=== PATIENT | female | born 1965 | race Two or more races ===

== ENCOUNTER → 2017-09-07 12:02 | Outpatient (CLI) | payer BC, SELFPAY ==
--- NOTE | 2017-09-07 12:10 | XR_ITS ---
XR chest 2V HISTORY: ITS.REASON: RT SIDE PAIN,COUGH ORDERING PHYSICIAN: Anthony Juarez MD PATIENT AGE: 52 years COMPARISON: None available FINDINGS: The cardiomediastinal silhouette and pulmonary vascularity are within normal limits. The lungs are clear without infiltrates, suspicious nodules, or pleural effusions. No acute bony abnormalities. IMPRESSION: Negative chest, no acute finding
== END ==
PROVIDERS: PCP Family Medicine; Visit Provider Family Medicine
DX: R07.81 Pleurodynia (principal)
CPT/HCPCS: 71046

== ENCOUNTER → 2017-12-13 08:06 | Outpatient (CLI) | payer BC, SELFPAY ==
[2017-12-13 09:15] LABS: Alanine Aminotransferase 26 U/L (12-78); Albumin Level 3.8 gm/dL (3.4-5.0); Alkaline Phosphatase 96 U/L (46-116); Anion Gap 8.9 mEq/L (5-15); Aspartate Amino Transferase 23 U/L (15-37); Bilirubin,Total 0.7 mg/dL (0.2-1.0); Blood Urea Nitrogen 10 mg/dL (7-18); Calcium 8.9 mg/dL (8.5-10.1); Carbon Dioxide 31 mmol/L (21.0-32.0); Chloride 108 mmol/L (98-107); Chol/HDL Ratio 2.5 (1-3.5); Cholesterol 199 mg/dL (140-200); Creatinine,Serum 0.61 mg/dL (0.55-1.02); Estimated Glomerular Filt Rate 103 ml/min (>60); GFR (African American) 124 ML/MIN (>60); Globulin 3.8 gm/dl (1.3-3.2); Glucose 73 mg/dL (74-106); HDL Cholesterol 79 mg/dL (29-89); LDL Cholesterol 106 mg/dL (0-130); Potassium 3.9 mmoL/L (3.5-5.1); Sodium 144 mmol/L (136-145); Thyroid Stimulating Hormone 3.98 uIU/ml (0.358-3.740); Total Protein,Serum 7.6 gm/dL (6.4-8.2); Triglycerides 68 mg/dL (30-200); VLDL Cholesterol 14 mg/dL (0-40)
== END ==
PROVIDERS: Visit Provider Family Medicine
DX: E78.5 Hyperlipidemia, unspecified (principal); E05.90 Thyrotoxicosis, unspecified without thyrotoxic crisis or storm; R00.2 Palpitations
CPT/HCPCS: 36415; 80053; 80061; 84443

== ENCOUNTER → 2017-12-19 12:40 | Outpatient (CLI) | payer BC, SELFPAY ==
--- NOTE | 2017-12-19 12:44 | XR_ITS ---
XR DEXA axial skeleton HISTORY: ITS.REASON: OSTEOPENIA ORDERING PHYSICIAN: Varghese Juarez MD PATIENT AGE: 52 years COMPARISON: 05/11/2015 FINDINGS: The BMD measured at the AP spine L1-L4 femoral neck is 0.863 g/cm squared with a T score of -2.6 . This is considered Osteoporotic according to the World Health Organization criteria. Fracture risk is high. Treatment is advised. The L-spine density has decreased a 14.5% and the hip density has decreased 8% compared to the previous study. The mean density of the hips have a T score of -2.4 IMPRESSION: Osteoporosis with high fracture risk. Recommend follow-up exam December 2018
== END ==
PROVIDERS: PCP Family Medicine; Visit Provider Family Medicine
DX: M85.89 Other specified disorders of bone density and structure, multiple sites (principal)
CPT/HCPCS: 77080

== ENCOUNTER 2018-01-02 12:48 | Outpatient (CLI) | payer BC, SELFPAY ==
[2018-01-02 13:40] VITALS: BP 115/63; PULSE 73; RESP 18; TEMP 36.4
[2018-01-02 14:00] VITALS: BP 126/81; PULSE 68; RESP 18
== END 2018-01-02 14:00 | disposition home or self-care (01) ==
LOC: INF 12:48
PROVIDERS: PCP Family Medicine; Visit Provider Family Medicine
DX: M85.89 Other specified disorders of bone density and structure, multiple sites (principal)
CPT/HCPCS: 96372; J0897

== ENCOUNTER 2018-07-10 13:33 | Outpatient (CLI) | payer BC, SELFPAY ==
[2018-07-10 13:44] VITALS: BP 119/67; PULSE 65; RESP 18; TEMP 36.5; O2SAT 98
== END 2018-07-10 14:00 | disposition home or self-care (01) ==
LOC: INF 13:33
PROVIDERS: Visit Provider Family Medicine
DX: M85.89 Other specified disorders of bone density and structure, multiple sites (principal)
CPT/HCPCS: 96372; J0897

== ENCOUNTER → 2018-12-29 18:54 | Outpatient (CLI) | payer BC, SELFPAY | PROVIDERS: Visit Provider Nurse Practitioner Family | DX: N30.01 Acute cystitis with hematuria (principal) | CPT/HCPCS: 87086; 87088; 87186 ==

== ENCOUNTER → 2019-06-28 12:21 | Outpatient (CLI) | payer BC, SELFPAY ==
[2019-06-28 12:24] LABS: Microscopic, Urine URINE MICROSCOPIC (MICROSCOPIC)
[2019-06-28 12:56] LABS: Appearance,Urine CLEAR (Clear); Bilirubin,Urine Negative (Negative); Blood, Urine 1+ (Negative); Color,Urine YELLOW (Yellow); Glucose,Urine (UA) Negative (Negative); Ketones,Urine Negative (Negative); Leukocyte Esterase,Urine Negative (Negative); Nitrate,Urine Negative (Negative); Protein,Urine Negative (Negative); Specific Gravity, Urine <= 1.005 (1.005-1.030); Urobilinogen,Urine 0.2 EU/dl (0.2)
[2019-06-28 13:21] LABS: Bacteria,Urine Trace /lpf; RBC,Urine Occasional #/hpf (0-3)
== END ==
PROVIDERS: Visit Provider Family Medicine
DX: R30.0 Dysuria (principal)
CPT/HCPCS: 81001; 87086

== ENCOUNTER → 2019-10-01 15:38 | Outpatient (CLI) | payer BC, SELFPAY ==
--- NOTE | 2019-10-01 15:45 | XR_ITS ---
PROCEDURE: XR SHOULDER LT MIN 2V CLINICAL INDICATION: LT SHOULDER PAIN COMPARISON: No exams were available for comparison FINDINGS: No fracture, dislocation, lytic change, or blastic change evident. No significant degenerative change IMPRESSION: Negative left shoulder Dictated by: Isak Cummings MD 10/01/2019 17:43 Electronically signed by Isak Cummings MD in [place] 10/01/2019 17:43
== END ==
PROVIDERS: PCP Family Medicine; Visit Provider Family Medicine
DX: M25.512 Pain in left shoulder (principal)
CPT/HCPCS: 73030

== ENCOUNTER → 2021-02-09 10:02 | Outpatient (CLI) | payer BC, SELFPAY | PROVIDERS: PCP Family Medicine; Visit Provider Family Medicine | DX: R00.2 Palpitations (principal) | CPT/HCPCS: 93225; 93226 ==

== ENCOUNTER → 2021-10-25 15:07 | Outpatient (CLI) | payer BC, SELFPAY ==
--- NOTE | 2021-10-25 15:25 | ECG_ITS ---
APPROVED REPORT Exam: Resting ECG HR:62 bpm ECG Measurements Heart Rate 62 AXES OH 163 P 85 QRSd 77 QRS 86 QT 383 T 70 QTc 389 Conclusion SINUS RHYTHM NORMAL ECG UNCONFIRMED REPORT Electronically signed by : Agustin Ni MD 10/26/2021 21:56:27
[2021-10-25 16:01] LABS: Chloride 100 mmol/L (98-107); Potassium 4.1 mmoL/L (3.5-5.1); Sodium 133 mmol/L (136-145)
[2021-10-25 16:04] LABS: Alanine Aminotransferase 29 U/L (12-78); Albumin Level 4.4 g/dl (3.5-5.0); Albumin/Globulin Ratio 1.8 (1.1-1.8); Alkaline Phosphatase 83 U/L (38-126); Anion Gap 10.1 mEq/L (5-15); Aspartate Amino Transferase 41 U/L (14-36); Bilirubin,Total 0.8 mg/dl (0.2-1.3); Blood Urea Nitrogen 13 mg/dl (7-17); Carbon Dioxide 27 mmol/L (22.0-30.0); Estimated Glomerular Filt Rate 86 ml/min (>60); GFR (African American) 104 ML/MIN (>60); Globulin 2.5 g/dL (1.3-3.2); Total Protein,Serum 6.9 g/dl (6.3-8.2)
[2021-10-25 16:05] LABS: Calcium 8.3 mg/dl (8.4-10.2); Glucose 100 mg/dl (74-100)
[2021-10-25 16:21] LABS: Triiodothryronine (T3) Uptake 29 % (23.5-40.5)
[2021-10-25 16:22] LABS: T4 (Thyroxine) 10.3 ug/dl (5.53-11.0)
[2021-10-25 16:36] LABS: Thyroid Stimulating Hormone 6.14 uIU/mL (0.465-4.68)
== END ==
PROVIDERS: PCP Family Medicine; Visit Provider Family Medicine
DX: I49.9 Cardiac arrhythmia, unspecified (principal)
CPT/HCPCS: 36415; 80053; 84436; 84443; 84479; 93005

== ENCOUNTER → 2021-12-20 13:25 | Outpatient (CLI) | payer BC, SELFPAY | PROVIDERS: Visit Provider Family Medicine | DX: I49.9 Cardiac arrhythmia, unspecified (principal) ==

== ENCOUNTER → 2022-02-01 07:48 | Outpatient (CLI) | payer BC, OTHER, SELFPAY ==
--- NOTE | 2022-02-01 | CA_ITS ---
APPROVED REPORT Exam: Exercise Treadmill Technologist: Margarita Brown, Ht: 5 ft 2 in Wt: 103 lbs BSA: 1.44 m2 HR: 68 bpm BP: 134/61 mmHg Medical History Medications: Simvastatin,,,,, Meclizine,,,,, Levpthyroxine,,,,, Stress Test Details Test: Omega HR Resting HR: 74 bpm Max Heart Rate (APMHR): 163.467379 bpm Max HR Achieved: 148 bpm Target HR (85% APMHR): 138.437375 bpm % of APMHR: 90.80 Recovery HR: 88 bpm BP Resting BP: 136/73 mmHg Max BP: 184/70 mmHg Recovery BP: 143.0/71.0 mmHg ECG Resting ECG: NSR-Inferior ST-T changes noted, NS ST changes laterally, rightward axis Clinical Exercise duration: 07:34 min Highest Stage Achieved: III Exercise capacity: 10.1 METs Stress ECG Conclusion Exercised 7:34 into stage III Omega protocol. Max HR: 148 % of PM: 91% Max BP: 184/76 METs: 10.1 Test stopped due to: SOA Symptoms: SOA, No CP. Arrhythmias/Ectopy: Rare PAC. ST-T Changes: Exaggeration of baseline ST-T abns inferiorly & laterally, with -2mm of horizontal & downsloping ST depression -1.5mm horizontal ST depression laterally. Conclusion: ST changes (+) for ischemia but with decreased specificity due to baseline abns. Myoview images reported separately. Test Summary RECOVERY 07:00 0.0 0.0 83 . 143/ 71 . . REST . . . . . . . Standing REST 04:42 0.0 0.0 74 . 136/ 73 . . Stage 1 01:00 10.0 1.7 90 . . . . Stage 1 02:00 10.0 1.7 104 . . . . Stage 1 03:00 10.0 1.7 112 . 174/ 76 . . Stage 2 01:00 12.0 2.5 120 . . . . Stage 2 02:00 12.0 2.5 130 . 184/ 70 . . Stage 2 03:00 12.0 2.5 135 . 184/ 70 . . Stage 3 01:00 14.0 3.4 142 . . . . Stage 3 01:34 14.0 3.4 148 . . . Stop exercise at 07:34 RECOVERY 01:00 0.0 0.0 129 . 184/ 76 . . RECOVERY 02:00 0.0 0.0 109 . 184/ 76 . . RECOVERY 03:00 0.0 0.0 96 . 174/ 82 . . RECOVERY 04:00 0.0 0.0 91 . 147/ 66 . . RECOVERY 05:00 0.0 0.0 88 . 143/ 71 . . RECOVERY 06:00 0.0 0.0 88 . 143/ 71 . . RECOVERY 07:00 0.0 0.0 83 . 143/ 71 . . RECOVERY 08:00 0.0 0.0 81 . 143/ 71 . . RECOVERY 09:00 0.0 0.0 82 . 143/ 71 . . RECOVERY 09:55 0.0 0.0 86 . 143/ 71 . . Electronically signed by : Jeffrey Raphael MD 02/01/2022 16:21:26
--- NOTE | 2022-02-01 07:51 | NM_ITS ---
APPROVED REPORT Exam: Nuclear Stress Test Indication: SOB, C.P., FM HX., FATIGUE Patient Location: Outpatient Stress Tech: Isabel Smith CT Tech:CURTIS Hayes RT(R)(N) Ht: 5 ft 2 in Wt: 104 lbs Bra Size: 34B HR: 74 bpm BP: 136/73 mmHg BSA: 1.45 m2 TID: 1.24 BMI: 19.0 History: SOB, C.P., FM HX., FATIGUE Procedure: Patient exercised on Omega protocol 7:34 minutes and sec, resting heart rate 74 bpm, resting blood pressure 136/73 mmHg, with exercise maximum heart rate achived was 148 bpm which is 91 % of the maximum predicted heart rate and blood pressure was 184/70 mmHg. Test was stopped due to FATIGUE. Patient denied any complaint of chest pain. Patient has good exercise capacity, achieved 10.1 METs of workload on treadmill, the blood pressure response to exercise was Adequate. Electrocardiogram Electrocardiogram shows sinus rhythm nonspecific ST-T changes, with exercise there is additional millimeter ST segment depression noted from the baseline EKG. The EKG portion of the exercise is nondiagnostic due to baseline abnormal EKG. Cardiac Stress and Resting SPECT Images: Cardiac Stress and Resting SPECT images were obtained using technetium 99m Myoview 32.6 mCi stress and 10.10 mCi at rest. Gated SPECT for analysis of segmental wall motion and calculation of the ejection fraction also done. Prone images were also obtained. Cardiac stress and rest SPECT images show uniform myocardial activity without segmental perfusion abnormality, computer derived ejection fraction is 61% with no regional wall motion abnormality, right ventricle is normal size and contractility. Conclusion: 1. The EKG portion of the exercise Myoview is nondiagnostic due to baseline abnormal EKG, patient has good exercise capacity achieved 10.1 METs of workload on treadmill, the blood pressure response to exercise was adequate, there was no exercise-induced chest discomfort. 2. No scintigraphic evidence of reversible ischemia seen, compared right ejection fraction 61% with no regional wall motion abnormality, right ventricle is normal size and contractility. 3. Normal exercise Myoview study. Electronically signed by : Jeffrey Raphael MD 02/01/2022 16:24:12
== END ==
PROVIDERS: PCP Family Medicine; Visit Provider Physician Assistant
DX: R06.09 Other forms of dyspnea (principal); R07.89 Other chest pain
CPT/HCPCS: 78452; 93017; A9502

== ENCOUNTER → 2022-04-25 08:52 | Outpatient (CLI) | payer BC, OTHER, SELFPAY ==
--- NOTE | 2022-04-25 09:00 | XR_ITS ---
FINAL REPORT TECHNIQUE: Bone densitometry calculations of the lumbar spine and left hip were obtained. CLINICAL HISTORY: .screening, osteopenia FINDINGS: DEXA BONE DENSITY AXIAL SKELETON Using L1-4, the bone mineral density of the spine is 0.717 g/cm2, corresponding to T-score of -3.0. Using the left hip, the bone mineral density of the femoral neck is 0.506 g/cm2, corresponding to a T-score of -3.1. NOTE: T-score: Standard deviation compared with peak bone mass of young adult mean. *Following the recommendations of the International Society of Bone Densitometry, classification of hip BMD is based on the lower of two T-scores; total hip or femoral neck. IMPRESSION: Osteoporosis: Lowest T-score is at or below -2.5. This patient's T-score meets the World Health Organization criteria for osteoporosis. FRAX not reported because some T-score for Spine Total or Hip Total or Femoral Neck at or below -2.5. Patient being treated for osteoporosis. Reviewed, Interpreted and Dictated by Tor Mehta MD Transcribed by Chikis Orozco Authenticated and [facility]
== END ==
PROVIDERS: PCP Family Medicine; Visit Provider Family Medicine
DX: M85.89 Other specified disorders of bone density and structure, multiple sites (principal)
CPT/HCPCS: 77080

== ENCOUNTER 2023-05-26 13:22 | Emergency (ER) | payer BC, OTHER, SELFPAY ==
--- NOTE | 2023-05-26 13:43 | EXP.UTC ---
Discharge Plan Disposition Patient Disposition: Home, Self-Care Condition: Good Prescriptions Prescriptions: New phenazopyridine [Pyridium] 200 mg tablet 200 mg PO Q8H 2 Days Qty: 6 0RF ciprofloxacin HCl [Cipro] 500 mg tablet 500 mg PO BID 7 Days Qty: 14 0RF ondansetron 4 mg Tablet,Disintegrating 4 mg PO Q8H PRN (Reason: Nausea) Qty: 12 0RF No Action levothyroxine 25 mcg tablet 25 mcg PO DAILY Patient Comments: TAKE 1 TABLET BY MOUTH EVERY DAY rosuvastatin 10 mg tablet 10 mg PO .every other day cyanocobalamin (vitamin B-12) 1,000 mcg tablet 1,000 mcg PO DAILY Patient Comments: TAKE 1 TABLET BY MOUTH EVERY DAY ferrous sulfate [FeroSul] 325 mg (65 mg iron) tablet 325 mg PO BID Patient Comments: TAKE 1 TABLET BY MOUTH TWICE DAILY cholecalciferol (vitamin D3) 1,250 mcg (50,000 unit) capsule 1,250 mcg PO WEEKLY Patient Comments: TAKE 1 CAPSULE BY MOUTH ONCE WEEKLY ON THE SAME DAY EACH WEEK Referrals Follow up/Referrals: Varghese Juarez MD [Primary Care Provider] - See instructions Activity Restrictions/Add. Instructions Additional Instructions/Restrictions: Drink plenty of fluids. Take tylenol or ibuprofen for pain or fever. Take the medications as directed. Follow up with your regular doctor. GO TO THE ER FOR ANY WORSENING SYMPTOMS The pyridium will make your urine turn orange, this is an expected side effect. It will stain your clothes if it comes into contact with them. We will culture the urine. That will tell what bacteria is causing your infection and which antibiotics will treat it best. Sometimes the first antibiotic we prescribe turns out to not work against different bacteria. So, make sure you follow up within 3 days if you are not getting better. Clinical Impressions Clinical Impression: UTI (urinary tract infection) Instructions Patient Instructions: Urinary Tract Infection, Urine Culture, DI for Urinary Tract Infection (UTI) Discharge ED Provider: Mike Raza [facility] General Stated complaint: poss UTI Time Seen by Provider: 05/26/23 13:43 History of Present Illness Provider Complaint: She states that for the past 2 days she has had dysuria, hematuria, and urinary frequency. She has had nausea and malaise also. Related Data Home Medications Medication Instructions Recorded Confirmed levothyroxine 25 mcg tablet 25 mcg PO DAILY thyroid 06/20/22 05/26/23 rosuvastatin 10 mg tablet 10 mg PO .every other day . 06/20/22 05/26/23 cholecalciferol (vitamin D3) 1,250 1,250 mcg PO WEEKLY Supplement 05/26/23 05/26/23 mcg (50,000 unit) capsule cyanocobalamin (vitamin B-12) 1,000 mcg PO DAILY Supplement 05/26/23 05/26/23 1,000 mcg tablet ferrous sulfate 325 mg (65 mg 325 mg PO BID Supplement 05/26/23 05/26/23 iron) tablet (FeroSul) Previous Rx's Medication Instructions Recorded ciprofloxacin HCl 500 mg tablet 500 mg PO BID 7 days #14 tabs 05/26/23 (Cipro) ondansetron 4 mg disintegrating 4 mg PO Q8H PRN Nausea #12 tabs 05/26/23 tablet phenazopyridine 200 mg tablet 200 mg PO Q8H 2 days #6 tabs 05/26/23 (Pyridium) Allergies Allergy/AdvReac Type Severity Reaction Status Date / Time No Known Allergies Allergy Verified 05/26/23 13:51 [facility] Disclaimer: The information contained in this section may have been updated after the patient was seen, as this information can be updated by other users. Medical History (Updated 05/26/23 @ 18:30 by Mike Raza APRN) Chronic eustachian tube dysfunction Ear pain Vertigo Family History Mother Thyroid disorder Hypertension Father Hypertension Social History Smoking Status: Never smoker alcohol intake: never substance use type: denies use current occupational status: employed Travel in the last 8 weeks: None [employer]
[2023-05-26 13:45] VITALS: BP 129/69; PULSE 93; RESP 18; TEMP 36.6; O2SAT 97; BMI 20.6
[2023-05-26 14:00] LABS: Microscopic, Urine URINE MICROSCOPIC (MICROSCOPIC)
[2023-05-26 14:01] LABS: Appearance,Urine CLEAR (Clear); Bilirubin,Urine Negative (Negative); Blood, Urine 3+ (Negative); Color,Urine YELLOW (Yellow); Glucose,Urine (UA) Negative (Negative); Ketones,Urine TRACE (Negative); Leukocyte Esterase,Urine 1+ (Negative); Nitrate,Urine Negative (Negative); Protein,Urine Negative (Negative); Specific Gravity, Urine <= 1.005 (1.005-1.030); Urobilinogen,Urine 0.2 EU/dl (0.2)
[2023-05-26 14:15] LABS: Bacteria,Urine 1+ /lpf; Squamous Epithelial Cell,Urine Occasional #/hpf (0-5); WBC,Urine 20-50 #/hpf (0-3)
[2023-05-26 14:32] VITALS: BP 129/69; PULSE 93; RESP 18; TEMP 36.6; O2SAT 97
== END 2023-05-26 14:32 | disposition home or self-care (01) ==
PROVIDERS: Emergency Provider Nurse Practitioner Family; PCP Family Medicine
DX: N39.0 Urinary tract infection, site not specified (principal); B96.89 Other specified bacterial agents as the cause of diseases classified elsewhere; R11.0 Nausea
CPT/HCPCS: 81001; 87086; 87088; 87186; 99204; 99212; G0463

== ENCOUNTER 2024-06-04 15:08 | Outpatient (CLI) | payer BC, OTHER, SELFPAY ==
--- NOTE | 2024-06-04 15:12 | XR_ITS ---
FINAL REPORT TECHNIQUE: Bone densitometry calculations of the lumbar spine and left hip were obtained. CLINICAL HISTORY: . COMPARISON: 04/25/2022 FINDINGS: Using L1-4, the bone mineral density of the spine is 0.730 g/cm2, corresponding to T-score of -2.9. Using the left hip, the bone mineral density of the femoral neck is 0.544 g/cm2, corresponding to a T-score of -2.8. Using the right hip, the bone mineral density of the femoral neck is 0.539 g/cm?, corresponding to a T-score of -2.8. NOTE: T-score: Standard deviation compared with peak bone mass of young adult mean. *Following the recommendations of the International Society of Bone densitometry, classification of hip BMD is based on the lower of two T-scores; total hip or femoral neck. IMPRESSION: Diminished bone mineral density of the lumbar spine and bilateral hips consistent with osteoporosis. Reviewed, Interpreted and Dictated by Tor Mehta MD Transcribed by Francoise Bird Authenticated and [facility]
== END 2024-06-04 23:59 | disposition home or self-care (01) ==
LOC: RAD 15:09
PROVIDERS: PCP Family Medicine; Visit Provider Family Medicine
DX: M81.0 Age-related osteoporosis without current pathological fracture (principal)
CPT/HCPCS: 77080

== ENCOUNTER 2025-02-23 16:16 | Outpatient (CLI) | payer BC, OTHER, SELFPAY ==
--- OUTSIDE RECORDS SUMMARY | 2024-11-03 10:00 | XMS_ITS ---
Author Organization [facility] Address [address] [place] [id number] Care Team Providers Care Glove Parts Inspector Name Role Phone Anahy Juarez Primary Care [...] Interpretation:Normal Performing Lab: Notes/Report: Test performed by [facility], [employer] [address] [place] [address] , [address], [place] [address] Garth Azevedo MD, Oil Lease Buyer CLIA: [id number] Sodium 138 135-145 mmol/L Potassium 4.2 3.5-5.3 [...] Interpretation:Normal Performing Lab: Notes/Report: Test performed by [facility] [address] , [address], [place] [address] Garth Azevedo MD, Oil Lease Buyer CLIA: [id number] TSH 1.95 0.43-5.25 mU/L REASON FOR VISIT refills Medications Medication SIG (Take, Route, Frequency, Duration) Notes Start Date End Date Status Risedronate Sodium 35 MG [address] 30 minutes before the first food or drink, other than water, of the day Orally for 30 day(s) 11/03/2024 Active Meclizine HCl 25 MG 1 tab(s) orally 3 times a day Not-Taking Rosuvastatin Calcium 10 MG take 1 tablet by mouth on sunday, sunday and sunday or as directed for 60 days Active Vitamin B-12 1000 MCG 1 tab(s) orally on a day Active D3-50 1.25 MG (54849 UT) 1 capsule weekly Active Fish Oil 1000 MG 1 cap(s) orally 2 times a day for 30 day(s) 10/15/2019 Active Fluticasone Propionate 50 MCG/ACT 1 spray(s) in each nostril once a day for 30 day(s) 02/09/2021 Active Ferrous Sulfate 325 (65 Fe) MG 1 tab(s) orally Two times a day 02/21/2022 Active Levothyroxine Sodium 25 MCG TAKE 1 TABLET BY MOUTH EVERY DAY for 90 days Active Coenzyme Q10 100 MG 1 cap(s) orally once a day for 30 day(s) 07/09/2019 Active Problems Problem Type SNOMED Code ICD Code Onset Dates Problem Status W/U Status Risk Notes Problem [id number] Iron deficiency anemia secondary to inadequate dietary iron intake (D50.8) Active confirmed Problem [id number] Iron deficiency anemia due to dietary causes (D50.8) Active confirmed Vital Signs Blood pressure systolic 120 mm Hg 11/04/19 25 Blood pressure diastolic 70L 140 mm Hg 025 Heart Rate 72 /min 11/03/2024 Height 62.25 in 11/03/2024 Weight 110.8 lbs 11/03/2024 BMI 20.10 kg/m2 11/03/2024 Encounters Encounter Location Date Provider Diagnosis [facility] [address] [place], [place] [id number] 11/03/2024 Anahy Juarez Hypothyroidism (acquired) E03.9 ; [...] drink, other than water, of the day Orally for 30 day(s) 11/03/2024 Rosuvastatin Calcium 10 MG take 1 tablet by mouth on sunday, sunday and sunday or as directed for 60 days Levothyroxine Sodium 25 MCG TAKE 1 TABLE T BY MOUTH EVERY DAY for 90 days Next Appt Details Follow Up: 4 Months, Reason: Progress Notes * Jody BENJAMINOB:1965 (59 yo F)Acc No.[id number]:11/03/2024 Progress Notes Patient: [place] QUEZADA Provider: Anahy Juarez M.D. :1965 A ge:59 Y S ex:Female Date:11/03/2024 Address:[address] [place] [address] [place], [phone] Subjective: * Chief Complaints: * 1 . Refills. * HPI: C ardiology: The pt is here for a check up on Hyperlipidemia and Hypothyroidism. Pt states she is doing good and denies any new concerns today. Pt states she is needing refills sent to [facility] in [place]. Pt states she is out of the [...] a day , Taking D3-50 1.25 MG (80155 UT) Capsule 1 capsule weekly , Taking [...] G eneral Examination: General Appearance: N AD. HEENT: u nremarkable. Oral cavity: n o lesions, mucosa moist and WNL, no erythema. Neck: s upple, no lymphadenopathy. Chest: n ormal shape and expansion. Heart: R SR. Lungs: c lear to auscultation. Abdomen: soft and nontender, no organomegaly or masses.? Neurologic Exam: I ntact, gait normal. Skin: n ormal, no rash. Peripheral pulses: n ormal . Back: no CVA tenderness. Extremities: n o leg edema. Assessment: * Assessment: 1. H ypothyroidism (acquired) - E03.9 (Primary) 2 . O steoporosis - M81.0? 3. I alejandro deficiency anemia secondary to inadequate dietary iron intake - D50.8? 4. H yperlipidemia, unspecified hyperlipidemia type - E78.5 Plan: * Treatment: Value Reference Range T SH 1.95 0.43-5.25 - mU/L * Rachele El 11/05/2024 4:52 :40 PM [...] Codes: 8 5025 CBC WITH AUTO DIFF, 82021 VENIPUNCT, ROUTINE*, 3074F SYST BP LT 130 MM HG, 3078F DIAST BP < 80 MM HG * Follow Up: 4 Months * Billing Information: * Visit Code: 73206 Office Visit, Est Pt., Level 4. * Procedure Codes: 40842 CBC WITH AUTO DIFF. 61407 VENIPUNCT, ROUTINE*. 3074F SYST BP LT 130 MM HG. 3078F DIAST BP < 80 MM HG. * Electronic signature of Anahy Juarez MD on 02/23/2025 at 04:17 PM EDT Sign off status: Pending * Provider: Anahy Juarez M.D. Date: 0 11/03/2024 Generated for Vivian sharif/Evonne/eTransmitting on: 0 02/23/2025 04:17 PM EDT History and Physical Notes * HPI (History [...]
--- OUTSIDE RECORDS SUMMARY | 2024-12-10 09:30 | XMS_ITS ---
Author Organization [facility] Address 1210 [facility] [address] [place] [id number] Care Team Providers Care Director Life Sales Name Role Phone Anahy Juarez Primary Care Provider [phone] Nuvia Hollingsworth Unavailable [phone] Allergies Allergen (clinical drug ingredient) Drug/Non Drug [...] Growth Performing Lab: Notes/Report: Test performed by [facility], [facility] [address] [place] [address] , [address], [place] [address] Garth Azevedo MD, Market Sales Manager CLIA: [id number] Specimen Source Urine - Void Culture, Urine See Below Final Report : No growth REASON FOR VISIT bladder problems Medications Medication SIG (Take, Route, Frequency, Duration) Notes Start Date End Date Status Rosuvastatin Calcium 10 MG take 1 tablet by mouth on sunday, sunday and sunday or as directed for 60 days Active Risedronate Sodium 35 MG TAKE 1 TABLET B Y MOUTH ONCE WEEKLY AT LEAST 30 MINUTES BEFORE FIRST FOOD OR DRINK OF THE DAY OTHER THAN WATER. for 84 Active FeroSul 325 (65 Fe) MG TAKE 1 TABLET BY MOUTH TWICE DAILY for 30 Active Vitamin B-12 1000 MCG TAKE 1 TABLET BY M OUTH DAILY for 30 Active Meclizine HCl 25 MG 1 tab(s) orally 3 times a day Not-Taking Fish Oil 1000 MG 1 cap(s) orally 2 times a day for 30 day(s) 10/15/2019 Active Fluticasone Propionate 50 MCG/ACT 1 spray(s) in each nostril once a day for 30 day(s) 02/09/2021 Active D3-50 1.25 MG (30496 UT) 1 capsule weekly Active Levothyroxine Sodium 25 MCG TAKE 1 TABLET BY MOUTH EVERY DAY for 90 days Active Cipro 250 MG 1 tablet Orally ever y 12 hrs for 7 days 12/10/2024 Active Coenzyme Q10 100 MG 1 cap(s) orally once a day for 30 day(s) 07/09/2019 Active Vital Signs Blood pressure systolic 140 mm Hg 12/11/19 25 Blood pressure diastolic 80 mm Hg 025 Heart Rate 69 /min 12/10/2024 Height 62.25 in 12/10/2024 Weight 111.2 lbs 12/10/2024 BMI 20.17 kg/m2 12/10/2024 Encounters Encounter Location Date Provider Diagnosis [facility] [address] [place] [id number] 12/10/2024 Nuvia Rinalditristen Dysuria R30.0 and BM [...] Notes Cipro 250 MG 1 tablet Orally every 12 hrs for 7 days 12/10 Treatment Notes Assessment Notes Dysuria Increase water intak e, no caffeine, no baths only showers Next Appt Details Follow Up: via phone to repo rt test results, Reason: Progress Notes * Carmelo BENJAMIN:1965 (59 yo F)Acc No.[id number]:12/10/2024 Progress Notes Patient: [place] QUEZADA Provider: DAISHA Figueroa :1965 A ge:59 Y S ex:Female Date:12/10/2024 Address:[address] [place] [address] [id number] Pcp:Anahy Juarez Subjective: * Chief Complaints: * [...] a day , Taking D3-50 1.25 MG (45556 UT) Capsule 1 capsule weekly , Taking [...] G eneral Examination: General Appearance: N AD. Chest: n ormal shape and expansion. Heart: R SR. Lungs: c lear to auscultation. Abdomen: bowel sounds present, soft, ttp over the suprapubic area. Assessment: * Assessment: 1. D ysuria - R30.0 (Primary) 2 . B LA 20.0-20.9, adult - Z68.20 Plan: * Treatment: Value Reference Range C ulture, Urine See Below - * S pecimen Source Urine - Void - * Sarah Landeros 12/12/2024 03:0 1:49 PM > Pt informed [...] * G marilu Neg * Rachele El 12/11/2024 1:1 3:40 PM > Provider reviewed results while patient in office. Notes: Increase water intake, no caffeine, no baths only showers?? * Procedure Codes: 8 1002 Urinalysis, no micro, 3077F SYST BP = 140 MM HG6 IT, 3079F DIAST BP 80-89 MM HG * Follow Up: v ia phone to report test results * Billing Information: * Visit Code: 45594 Office Visit, Est Pt., Level 3. * Procedure Codes: 22617 Urinalysis, no micro. 3077F SYST BP = 140 MM HG6 IT. 3079F DIAST BP 80-89 MM HG. * Electronic signature of DAISHA Candelaria on 02/23/2025 at 04:18 PM EDT Sign off status: Pending * Provider: DAISHA Figueroa Date: 0 12/10/2024 Generated for Vivian sharif/Evonne/eTdaisysmitting on: 0 02/23/2025 04:18 PM EDT History and Physical Notes * [...]
--- OUTSIDE RECORDS SUMMARY | 2025-02-23 16:18 | XMS_ITS | Patient Health Record ---
Author Organization [facility] Address [facility] [address] [place] [phone] Care Team Providers Care Stucco Worker Name Role Phone Anahy Juarez Primary Care Provider Nuvia Hollingsworth Unavailable [phone] Allergies Allergen (clinical drug ingredient) Drug/Non Drug [...] Interpretation:Normal Performing Lab: Notes/Report: Test performed by [facility], [facility] [address] [place] [address] , [address], [place] [address] Garth Azevedo MD, Electric Train Driver CLIA: [id number] Sodium 138 135-145 mmol/L Potassium 4.2 3.5-5.3 [...] Interpretation:Normal Performing Lab: Notes/Report: Test performed by [facility] [address] [place] [address] , [address], [place] [address] Garth Azevedo MD, Electric Train Driver CLIA: [id number] TSH 1.95 0.43-5.25 mU/L CBC Venipuncture (in house) (Not yet reviewed by provider) Interpretation: Performing Lab: Notes/Report: wbc 7.4 3.5 - 10 lymph 27.0% 15 - 50 mid 6.4% 2 - 15 gran 66.6% 35 - 80 rbc 3.77 3.5 - 5.5 hgb 11.6 11.5 - 16.5 hct 34.9 35 - 55 mcv 92.7 75 - 100 mch 30.9 25 - 35 mchc 33.3 31 - 38 platlet 221 100 - 400 Urinalysis - Inhouse Reviewed date:12/11/2024 01:27:13 PM Interpretation: Performing Lab: Notes/Report: Color/Clarity yellow/clear Leuk Neg Nitrite Neg Urobili 3.2 Protein Neg pH 7.0 Blood 1+ Sp. Gr. 1.010 Ketone Neg Bili Neg Gluc Neg P-Culture, Urine Reviewed date:12/12/2024 03:02:01 PM Interpretation:No Growth Performing Lab: Notes/Report: Test performed by [facility] [address] [place] [address] , [address], [place] [address] Garth Azevedo MD, Electric Train Driver CLIA: [id number] Specimen Source Urine - Void Culture, Urine See Below Final Report : No growth Glycohemoglobin A1c (in hous e) Reviewed date:04/28/2024 03:49:18 PM Interpretation: Performing Lab: Notes/Report: glycohemoglobin 5.3% 5 - 6.5 % P-Vitamin B12 Reviewed date:04/29/2024 09:47:00 AM Interpretation:>2000 Performing Lab: Notes/Report: Test performed by [facility] [address] , [place] [address] Garth Azevedo MD, Electric Train Driver CLIA: [id number] Vitamin B12 >2000 232-1245 pg/mL P-Basic Metabolic Panel (BMP ) Reviewed date:04/29/2024 09:47:01 AM Interpretation: Normal Performing Lab: Notes/Report: Test performed by [facility] [address] , [place] [address] Garth Azevedo MD, Electric Train Driver CLIA: [id number] Sodium 142 135-145 mmol/L Potassium 4.0 3.5-5.3 mmol/L Chloride 104 97-108 mmol/L CO2 28 22-32 mmol/L Glucose 91 65-99 mg/dL BUN 12 8-23 mg/dL Creatinine 0.60 0.50-1.00 mg/dL Calcium 9.3 8.6-10.4 mg/dL eGFR by Creatinine 103 >59 mL/min/1.73m2 P-Vitamin D 25-Hydroxy Reviewed date:04/29/2024 09:47:01 AM Interpretation: Normal Performing Lab: Notes/Report: Test performed by [facility] [address] , [address], [place] [address] Garth Azevedo MD, Electric Train Driver CLIA: [id number] Vitamin D 25-Hydroxy 63.7 30.0-100.0 ng/mL Interpretation of Vitamin D 25 OH: < 20 ng/mL - Deficiency 20 - 29 ng/mL - Insufficiency 30 - 100 ng/mL - Sufficiency > 100 ng/mL - Super-therapeutic- toxicity may occur above this level. Clinical correlation required. [facility] Spine Reviewed date:06/05/2024 09:10:08 AM Interpretation:osteoporosis Performing Lab: Notes/Report: osteoporosis Reason For Referral No Information Medications Medication SIG (Take, Route, Frequency, Duration) Notes Start Date End Date Status Vitamin B-12 1000 MCG TAKE 1 TABLET BY M OUTH DAILY for 30 Active Meclizine HCl 25 MG 1 tab(s) orally 3 times a day Not-Taking FeroSul 325 (65 Fe) MG TAKE 1 TABLET BY MOUTH TWICE DAILY for 30 Active Rosuvastatin Calcium 10 MG take 1 tablet by mouth on sunday, sunday and sunday or as directed for 60 days Active Risedronate Sodium 35 MG TAKE 1 TABLET B Y MOUTH ONCE WEEKLY AT LEAST 30 MINUTES BEFORE FIRST FOOD OR DRINK OF THE DAY OTHER THAN WATER. for 84 Not-Taking Levothyroxine Sodium 25 MCG TAKE 1 TABLET BY MOUTH EVERY DAY for 90 days Active Fluticasone Propionate 50 MCG/ACT 1 spray(s) in each nostril once a day for 30 day(s) 02/09/2021 Active D3-50 1.25 MG (14059 UT) 1 capsule weekly Active Metoprolol Succinate ER 25 MG 1 tablet Orally Once a day for 30 days 02/23/2025 Active Coenzyme Q10 100 MG 1 cap(s) orally once a day for 30 day(s) 07/09/2019 Active Fish Oil 1000 MG 1 cap(s) orally 2 times a day for 30 day(s) 10/15/2019 Active Immunizations Vaccine Route Administration Date Status Comme nts COVID 19 Torey Unknown 12/08/2020 Administered COVID 19 Moderna Unknown 07/18/2021 Administered COVID 19 Moderna Unknown 02/16/2022 Administered Fluzone Quad (6months&older) IM Intramuscular 05/15/2018 Administered Fluzone Quad (6months&older) IM Intramuscular 06/25/2019 Administered Fluzone Quad (6months&older) IM Intramuscular 06/28/2020 Administered Fluzone Quad (6months&older) IM Intramuscular 06/01/2021 Administered Tetanus Tdap-Adacel (over 7yrs) IM Intramuscular 12/12/2017 Administered xFluzone (6mos and older)-trivalent IM Intramuscular 06/11/2014 Administered Problems Problem Type SNOMED Code ICD Code Onset Dates Problem Status W/U Status Risk Notes Problem 568432751 Dizziness (R42) Active confirmed Problem 60365759 Palpitations (R00.2) Active confirmed Problem 225506046 Hypothyroidism (acquired) (E03.9) Active confirmed Problem 67496785 Vitamin D defici ency (E55.9) Active confirmed Problem 362741947 Hypertriglycerid emia (E78.1) Active confirmed Problem Osteopenia (283892365) Osteopenia (M85.80) Active confirmed Problem 90872058 Hyperthyroidism (E05.90) Active confirmed Problem 30576257 Other chronic pa in (G89.29) Active confirmed Problem 24811137 Acute cystitis w ith hematuria (N30.01) Active confirmed Problem 36550117 Chronic fatigue (R53.82) Active confirmed Problem 346752549 Thrombocytopenia (D69.6) Active confirmed Problem 65261173 Other vitamin B1 2 deficiency anemia (D51.8) Active confirmed Problem Osteoporosis (06956477) Osteoporosis (M81.0) Active confirmed Problem 60513203 Other and unspec ified hyperlipidemia (E78.5) Active confirmed Problem 26110720 Hyperlipidemia, unspecified hyperlipidemia type (E78.5) Active confirmed Problem 08243758 Seasonal allergi c rhinitis due to pollen (J30.1) Active confirmed Problem 728528531 Cardiac dysrhyth isaías, unspecified (I49.9) Active confirmed Problem 625773921 Iron deficiency anemia secondary to inadequate dietary iron intake (D50.8) Active confirmed Problem 073108007 Osteopenia of mu ltiple sites (M85.89) Active confirmed Problem 393449537 Iron deficiency anemia due to dietary causes (D50.8) Active confirmed Problem 25547770 Primary hyperten myesha (I10) Active confirmed Problem 88313403 Chronic dysfunct ion of left eustachian tube (H69.82) Active confirmed Vital Signs Heart Rate 73 /min 02/23/2025 Blood pressure diastolic 80 mm Hg 02/23/2025 Height 62.25 in 02/23/2025 Blood pressure systolic 132 mm Hg 02/23/2025 Weight 110.8 lbs 02/23/2025 BMI 20.1 kg/m2 02/23/2025 Encounters Encounter Location Date Provider Diagnosis [facility] [address] [facility] [address] [place] [id number] 04/28/2024 Anahy Juarez Primary hypertension I10 ; Other vitamin B12 deficiency anemia D51.8 ; Age-related osteoporosis without current pathological fracture M81.0 ; Hypothyroidism (acquired) E03.9 ; Hyperlipidemia, unspecified hyperlipidemia type E78.5 ; Vitamin D deficiency E55.9 and Hyperglycemia R73.9 [facility] [address] [place] [id number] 11/03/2024 Anahy Juarez Hypothyroidism (acquired) E03.9 ; Osteoporosis M81.0 ; Iron deficiency anemia secondary to inadequate dietary iron intake D50.8 and Hyperlipidemia, unspecified hyperlipidemia type E78.5 [facility] [address] [place] [id number] 12/10/2024 Nuvia Crowdy Dysuria R30.0 and BM I 20.0-20.9, adult Z68.20 [facility] [address] [place] [id number] 02/23/2025 Anahy Juarez Primary hypertension I10 ; Hypothyroidism (acquired) E03.9 and Chest discomfort R07.89 [facility] [address] [place] [id number] 04/29/2024 Anahy Juarez [facility] [address] [place] [id number] 06/05/2024 Anahy Juarez [facility] [address] [place] [id number] 06/10/2024 Anahy Juarez Assessments Encounter Date Diagnosis (ICD Code) Assessment Notes Treatment Notes Treatment Clinical Notes Section Notes 04/28/2024 Other vitamin B12 deficiency anemia (ICD-10 - D51.8) 04/28/2024 Primary hypertension (ICD-10 - I10) 11/03/2024 Hypothyroidism (acquired) (ICD-10 - E03.9) 11/03/2024 Osteoporosis (ICD-10 - M81.0) 12/10/2024 Dysuria (ICD-10 - R30.0) Increase water intake, no caffeine, no baths only showers 12/10/2024 BMI 20.0-20.9, adult (ICD-10 - Z68.20) 02/23/2025 Hypothyroidism (acquired) (ICD-10 - E03.9) 02/23/2025 Primary hypertension (ICD-10 - I10) 11/03/2024 Iron deficiency anemia secondary to inadequate dietary iron intake (ICD-10 - D50.8) 02/23/2025 Chest discomfort (ICD-10 - R07.89) 04/28/2024 Age-related osteoporosis without current pathological fracture (ICD-10 - M81.0) 04/28/2024 Hypothyroidism (acquired) (ICD-10 - E03.9) 11/03/2024 Hyperlipidemia, unspecified hyperlipidemia type (ICD-10 - E78.5) 04/28/2024 Hyperlipidemia, unspecified hyperlipidemia type (ICD-10 - E78.5) 04/28/2024 Vitamin D deficiency (ICD-10 - E55.9) 04/28/2024 Hyperglycemia (ICD-10 - R73.9) Plan Of Treatment Pending Test Test Name Order Date EKG 02/23/2025 CBC Venipuncture (in house) 02/23/2025 Cardiac enzymes 10/25/2021 Mammogram 01/17/2023 P-Comprehensive Metabolic Panel (CMP) P-TSH 02/23/2025 Insurance Providers Payer Name Payer Address Payer Phone Subscriber Number Group Number Insured Name Patient Relationship to Insured Coverage Start Date Coverage End Date [employer] [address] [place] [address] [id number] [place] Jaffe Self - patient is the insured Medications Administered Medication Instructions Date of Administration Dosage Notes B-12 04/19/2022 1 mL Medical (General) History Medical History History ICD Code hyperlipidemia Covid Vaccine J&J - Nov 2020 COVID 19 Bivalent Booster, 2021 Flu shot 2021/2022 COVID 19 Booster, February 2022 Surgical History Surgery Date(Month/Year) Tubes tied 1996 Hospitalization History Reason Date(Month/Year) Malaria 1983 Childbirth 1985 Childbirth 1993
--- NOTE | 2025-02-23 16:25 | ECG_ITS ---
APPROVED REPORT Exam: Resting ECG HR:62 bpm ECG Measurements Heart Rate 62 AXES WI 158 P 83 QRSd 76 QRS 73 QT 398 T 65 QTc 404 Conclusion SINUS RHYTHM POSSIBLE LEFT ATRIAL ENLARGEMENT [-0.1mV P-WAVE IN V1/V2] SEPTAL MYOCARDIAL INFARCTION , OF INDETERMINATE AGE [40+ ms Q WAVE IN V1/V2] ABNORMAL ECG UNCONFIRMED REPORT Electronically signed by : Agustin Ni MD 02/24/2025 09:06:26
== END 2025-02-23 23:59 | disposition home or self-care (01) ==
LOC: RT 16:16
PROVIDERS: PCP Family Medicine; Visit Provider Family Medicine
DX: I25.2 Old myocardial infarction (principal); R94.31 Abnormal electrocardiogram [ECG] [EKG]
CPT/HCPCS: 93005

== ENCOUNTER 2025-09-02 13:42 | Outpatient (CLI) | payer BC, OTHER, SELFPAY ==
--- OUTSIDE RECORDS SUMMARY | 2024-04-28 09:15 | XMS_ITS ---
[facility] Address [address] [place] [id number] Care Team Providers Care Horticulture Professor Name Role Phone Anahy Juarez Primary Care Provider Allergies Allergen (clinical drug ingredient) Drug/Non Drug Allergy documented on EMR Reaction Allergy Type Onset Date Status alendronate Alendronate Sodium Unknown Drug Allergy Active raloxifene Raloxifene hot flashes Drug Allergy Act april Results Component Value Reference Range Notes Glycohemoglobin A1c (in hous e) Reviewed date:04/28/2024 03:49:18 PM Interpretation: Performing Lab: Notes/Report: glycohemoglobin 5.3% 5 - 6.5 % P-Vitamin B12 Reviewed date:04/29/2024 09:47:00 AM Interpretation:>2000 Performing Lab: Notes/Report: CLIA: [id number] Garth Azevedo MD, Environmental Compliance Specialist [address] [place] [address] [place] [address] Test performed by [facility] Vitamin B12 >2000 232-1245 pg/mL P-Basic Metabolic Panel (BMP ) Reviewed date:04/29/2024 09:47:01 AM Interpretation: Normal Performing Lab: Notes/Report: Test performed by [facility] [address] [place] [address] [place] [address] Garth Azevedo MD, Environmental Compliance Specialist CLIA: [id number] Sodium 142 135-145 mmol/L Potassium 4.0 3.5-5.3 mmol/L Chloride 104 97-108 mmol/L CO2 28 22-32 mmol/L Glucose 91 65-99 mg/dL BUN 12 8-23 mg/dL Creatinine 0.60 0.50-1.00 mg/dL Calcium 9.3 8.6-10.4 mg/dL eGFR by Creatinine 103 >59 mL/min/1.73m2 P-Vitamin D 25-Hydroxy Reviewed date:04/29/2024 09:47:01 AM Interpretation: Normal Performing Lab: Notes/Report: Test performed by [facility] [address] [place] [address] , [address], [place] [address] Garth Azevedo MD, Environmental Compliance Specialist CLIA: [id number] Vitamin D 25-Hydroxy 63.7 30.0-100.0 ng/mL Interpretation of Vitamin D 25 OH: < 20 ng/mL - Deficiency 20 - 29 ng/mL - Insufficiency 30 - 100 ng/mL - Sufficiency > 100 ng/mL - Super-therapeutic- toxicity may occur above this level. Clinical correlation required. DEXA Hip and Spine Reviewed date:06/05/2024 09:10:08 AM Interpretation:osteoporosis Performing Lab: Notes/Report: osteoporosis REASON FOR VISIT checkup, Needs labs, mammogram, bone density screening, colon cancer screening, & shingles vaccine Medications Medication SIG (Take, Route, Frequency, Duration) Notes Start Date End Date Status Rosuvastatin Calcium 10 MG 1 tablet Orally MWF Active Ferrous Sulfate 325 (65 Fe) MG 1 tab(s) orally Two times a day 02/21/2022 Active Fluticasone Propionate 50 MCG/ACT 1 spray(s) in each nostril once a day; Duration: 30 day(s) 02/09/2021 Active Fish Oil 1000 MG 1 cap(s) orally 2 ti mes a day; Duration: 30 day(s) 10/15/2019 Active Coenzyme Q10 100 MG 1 cap(s) orally once a day; Duration: 30 day(s) 07/09/2019 Active Prolia 60 MG/ML as directed Subcutaneous 04/28/2024 Active Meclizine HCl 25 MG 1 tab(s) orally 3 ti mes a day Not-Taking Levothyroxine Sodium 25 MCG TAKE 1 TABLET BY MOUTH EVERY DAY; Duration: 90 days Active D3-50 1.25 MG (71535 UT) 1 capsule weekly Active Vitamin B-12 1000 MCG 1 tab(s) orally on ce a day Active Vital Signs Weight 110.0 lbs 04/28/2024 Blood pressure systolic 140 mm Hg 04/28/20 24 Blood pressure diastolic 80 mm Hg 024 Heart Rate 75 /min 04/28/2024 Height 62.25 in 04/28/2024 BMI 19.96 kg/m2 04/28/2024 Encounters Encounter Location Date Provider Diagnosis [facility] [address] [place] [id number] 04/28/2024 Anahy Juarez Primary hypertension I10 ; Other vitamin B12 deficiency anemia D51.8 ; Age-related osteoporosis without current pathological fracture M81.0 ; Hypothyroidism (acquired) E03.9 ; Hyperlipidemia, unspecified hyperlipidemia type E78.5 ; Vitamin D deficiency E55.9 and Hyperglycemia R73.9 Assessments Encounter Date Diagnosis (ICD Code) Assessment Notes Treatment Notes Treatment Clinical Notes Section Notes 04/28/2024 Primary hypertension (ICD-10 - I10) 04/28/2024 Other vitamin B12 deficiency anemia (ICD-10 - D51.8) 04/28/2024 Age-related osteoporosis without current pathological fracture (ICD-10 - M81.0) 04/28/2024 Hypothyroidism (acquired) (ICD-10 - E03.9) 04/28/2024 Hyperlipidemia, unspecified hyperlipidemia type (ICD-10 - E78.5) 04/28/2024 Vitamin D deficiency (ICD-10 - E55.9) 04/28/2024 Hyperglycemia (ICD-10 - R73.9) Plan Of Treatment Medication Medication Name Sig Start Date Stop Date Notes Prolia 60 MG/ML as directed Subcutaneous 04/28/2024 D3-50 1.25 MG (27860 UT) 1 capsule weekly Vitamin B-12 1000 MCG 1 tab(s) orally once a day Next Appt Details Follow Up: 6 Months, Reason: Progress Notes * Jimmy BENJAMINOlegOB:1965 (60 yo F)Acc No.[id number]:04/28/2024 Progress Notes Patient: [place] QUEZADA Provider: Anahy Juarez M.D. :1965 A ge:59 Y S ex:Female Date:04/28/2024 Address:[address] [place] [address] , [phone] Subjective: * Chief Complaints: * 1 . Checkup. 2. Needs labs, mammogram, bone density screening, colon cancer screening, & shingles vaccine. * HPI: E ndocrinology: The pt is here for a check up. Pt states she has a family history of diabetes in her mother and would like to have her A1C checked today. Pt states she is needing refills sent to [facility] in [place] for B 12 and Vitamin D. Took Prolia, she thinks she had 2 shots. Did not tolerate Risendronate. Denies : Blurred Vision. D enies : Appetite Change. * ROS: D ERMATOLOGY: no R mirta. n o H zay. G ASTROENTEROLOGY: no N ausea. n o V omiting. n o D iarrhea.? U ROLOGY: no D ifficulty urinating. n o B lood in urine. * Medical History: H yperlipidemia, Covid Vaccine J&J - Nov 2020, COVID 19 Bivalent Booster, 2021, Flu shot 2021/2022, COVID 19 Booster, February 2022. * Surgical History: T ubes tied 1996. * Hospitalization/Major Diagno stic Procedure: C hildbirth 1984, Childbirth 1992, Malaria 1982. * Family History: F ather: alive, hypertension. M other: alive, diabetes, hypertension. 1 brother(s) , 3 sister(s) - healthy. 1 son(s) , 1 daughter(s) - healthy. . * Social History: C URRENT TOBACCO USE S moking Status: Patient does NOT smoke. C affeine: yes, frequency: 1 cup of tea a day. Exercise: no. Marital Status: . Past smoking status: no, Smoking status: Does not smoke. Alcohol: No. * Medications: T aking Coenzyme Q10 100 MG Capsule 1 cap(s) orally once a day , Taking Fish Oil 1000 MG Capsule 1 cap(s) orally 2 times a day , Taking Fluticasone Propionate 50 MCG/ACT Suspension 1 spray(s) in each nostril once a day , Taking Ferrous Sulfate 325 (65 Fe) MG Tablet 1 tab(s) orally Two times a day , Taking Vitamin B-12 1000 MCG Tablet 1 tab(s) orally once a day , Taking Rosuvastatin Calcium 10 MG Tablet 1 tablet Orally MWF , Taking D3-50 1.25 MG (69403 UT) Capsule 1 capsule weekly , Taking Levothyroxine Sodium 25 MCG Tablet TAKE 1 TABLET BY MOUTH EVERY DAY , Not-Taking Meclizine HCl 25 MG Tablet 1 tab(s) orally 3 times a day , Medication List reviewed and reconciled with the patient * Allergies: R aloxifene: hot flashes - Side Effects, Alendronate Sodium. Objective: * Vitals: W t:110.0, Temp:98.1, BP:140/80, HR:75, Nurse:TIA, Ht: 62.25, BMI:19.96. * Examination: G eneral Examination: General Appearance: N AD. H EENT: u nremarkable.?Oral cavity: n o lesions, mucosa moist and WNL, no erythema. N dana: s upple, no lymphadenopathy. C hest: n ormal shape and expansion. H eart: R SR. L ungs: c lear to auscultation. A bdomen: soft and nontender, no organomegaly or masses. N eurologic Exam: I ntact, gait normal. S kin: n ormal, no rash. P eripheral pulses: n ormal . B ack: no CVA tenderness. E xtremities: n o leg edema. ? Assessment: * Assessment: 1. P rimary hypertension - I10 (Primary) 2 . O ther vitamin B12 deficiency anemia - D51.8 3 . A ge-related osteoporosis without current pathological fracture - M81.0 4 . H ypothyroidism (acquired) - E03.9 5 . H yperlipidemia, unspecified hyperlipidemia type - E78.5 6 . V itamin D deficiency - E55.9 7 . H yperglycemia - R73.9 Plan: * Treatment: Value Reference Range B UN 12 8-23 - mg/dL * C alcium 9.3 8.6-10.4 - mg/dL * C hloride 104 97-108 - mmol/L * C O2 28 22-32 - mmol/L * C reatinine 0.60 0.50-1.00 - mg/dL * G lucose 91 65-99 - mg/dL * P otassium 4.0 3.5-5.3 - mmol/L * S odium 142 135-145 - mmol/L * e GFR by Creatinine 103 >59 - mL/min/1.73m2 * Claudia Hardin 04/29/2024 9:46: 54 AM >See phone encounter 2.?Other vitamin B12 deficiency anemia? Refill Vitamin B-12 Tablet, 1000 MCG, 1 tab(s), orally, once a day, 30, Refills 5.?LAB: P-Vitamin B12 (Collection Date & Time - 04/28/2024 03:22 PM)?>2000* Value Reference Range V itamin B12 >2000 H 232-1245 - pg/mL * Caludia Hardin 04/29/2024 9:46: 54 AM >See phone encounter 3.?Age-related osteoporosis without current pathological fracture? Start Prolia Solution Prefilled Syringe, 60 MG/ML, as directed, Subcutaneous.?Imaging: DEXA Hip and Spine (Performed Date - 06/04/2024)?osteoporosis* Susanna Phillips 04/28/2024 3:27: 32 PM > no auth needed; CPT code 17733; faxed to Claudia Mccollum 06/05/2024 9:10:02 AM > , See phone encounter 4.?Vitamin D deficiency? Refill D3-50 Capsule, 1.25 MG (41233 UT), 1 capsule, weekly, 8, Refills 4.?LAB: P-Vitamin D 25-Hydroxy (Collection Date & Time - 04/28/2024 03:22 PM)? Normal* Value Reference Range V itamin D 25-Hydroxy 63.7 30.0-100.0 - ng/mL * Claudia Hardin 04/29/2024 9:46: 54 AM >See phone encounter 5.?Hyperglycemia?LAB: Glycohemoglobin A1c (in house) (Collection Date & Time - 04/28/2024)* Value Reference Range g lycohemoglobin 5.3% 5 - 6.5 % * Dary Chaudhry 04/28/2024 2:34:59 PM > , Provider reviewed results while patient in office. * Procedure Codes: 3 6416 CAPILLARY BLOOD DRAW, 14604 GLYCATED HEMOGLOBIN TEST, Modifiers: QW * Follow Up: 6 Months * Images: Billing Information: * Visit Code: 79268 Office Visit, Est Pt., Level 4. * Procedure Codes: 37161 CAPILLARY BLOOD DRAW. 37008 GLYCATED HEMOGLOBIN TEST. Modifiers: QW * Electronic signature of Anahy Juarez MD on 09/02/2025 at 01:44 PM EST Sign off status: Pending * Provider: Anahy Juarez M.D. Date: 0 04/28/2024 Generated for Xeniai kole/Evonne/eTransmitting on: 01:44 PM EST History and Physical Notes * HPI (History of Present Illness) Category Sub-Category Detail Notes Category Not es Endocrinology Appetite Change Blurred Vision Examination Category Sub-Category Detail Notes Category Not es General Examination HEENT: unremarkable Heart: RSR Lungs: clear to auscultatio n Abdomen: soft and nontender, no organomegaly or masses Extremities: no leg edema General Appearance: NAD Skin: normal, no rash Neurologic Exam: Intact, gait normal Neck: supple, no lymphaden opathy Oral cavity: no lesions, mucosa m oist and WNL, no erythema Peripheral pulses: normal Back: no CVA tenderness Chest: normal shape and exp ansion
--- OUTSIDE RECORDS SUMMARY | 2024-11-03 09:00 | XMS_ITS ---
[facility] Organization [facility] Address [address] [place] [id number] Care Team Providers Care Crystal Flat Grinder Name Role Phone Anahy Juarez Primary Care Provider [phone] Allergies Allergen (clinical drug ingredient) Drug/Non Drug Allergy documented on EMR Reaction Allergy Type Onset Date Status alendronate Alendronate Sodium Unknown Drug Allergy Active raloxifene Raloxifene hot flashes Drug Allergy Act april Results Component Value Reference Range Notes CBC Venipuncture (in house) Reviewed date:11/03/2024 04:49:59 PM Interpretation: Performing Lab: Notes/Report: wbc 5.8 3.5 - 10 lymph 27.1% 15 - 50 mid 6.1% 2 - 15 gran 66.8% 35 - 80 rbc 3.91 3.5 - 5.5 hgb 12.3 11.5 - 16.5 hct 35.8 35 - 55 mcv 91.5 75 - 100 mch 31.5 25 - 35 mchc 34.4 31 - 38 platlet 227 100 - 400 P-Comprehensive Metabolic Pa nadiya (CMP) Reviewed date:11/05/2024 04:53:58 PM Interpretation:Normal Performing Lab: Notes/Report: CLIA: [id number] Garth Azevedo MD, Bowling Teacher [address] [place] [address] , [address], [place] [address] Test performed by [employer], [employer] Sodium 138 135-145 mmol/L Potassium 4.2 3.5-5.3 mmol/L Chloride 101 97-108 mmol/L CO2 26 22-32 mmol/L Glucose 91 65-99 mg/dL BUN 15 8-23 mg/dL Creatinine 0.67 0.50-1.00 mg/dL Calcium 9.4 8.6-10.4 mg/dL eGFR by Creatinine 100 >59 mL/min/1.73m2 Protein 6.8 6.0-8.3 g/dL Albumin 4.4 3.5-5.3 g/dL Alkaline Phosphatase 93 35-121 IU/L ALT (SGPT) 21 <5-47 IU/L AST (SGOT) 24 <5-40 IU/L Bilirubin, Total 0.5 <0.2-1.2 mg/dL A/G Ratio 1.8 1.1-2.5 P-TSH Reviewed date:11/05/2024 04:53:58 PM Interpretation:Normal Performing Lab: Notes/Report: Test performed by [facility] [address] , [address], [place] [address] Garth Azevedo MD, Bowling Teacher CLIA: [id number] TSH 1.95 0.43-5.25 mU/L REASON FOR VISIT refills Medications Medication SIG (Take, Route, Frequency, Duration) Notes Start Date End Date Status Risedronate Sodium 35 MG [address] 30 minutes before the first food or drink, other than water, of the day Orally; Duration: 30 day(s) 11/03/2024 Active Meclizine HCl 25 MG 1 tab(s) orally 3 times a day Not-Taking Rosuvastatin Calcium 10 MG take 1 tablet by mouth on sunday, sunday and sunday or as directed; Duration: 60 days Active Vitamin B-12 1000 MCG 1 tab(s) orally on a day Active D3-50 1.25 MG (77831 UT) 1 capsule weekly Active Fish Oil 1000 MG 1 cap(s) orally 2 times a day; Duration: 30 day(s) 10/15/2019 Active Fluticasone Propionate 50 MCG/ACT 1 spray(s) in each nostril once a day; Duration: 30 day(s) 02/09/2021 Active Ferrous Sulfate 325 (65 Fe) MG 1 tab(s) orally Two times a day 02/21/2022 Active Levothyroxine Sodium 25 MCG TAKE 1 TABLET BY MOUTH EVERY DAY; Duration: 90 days Active Coenzyme Q10 100 MG 1 cap(s) orally once a day; Duration: 30 day(s) 07/09/2019 Active Problems Problem Type SNOMED Code ICD Code Onset Dates Problem Status W/U Status Risk Notes Problem Iron deficiency anemia secondary to inadequate dietary iron intake ([id number]) Iron deficiency anemia secondary to inadequate dietary iron intake (D50.8) Active confirmed Problem Iron deficiency anemia due to dietary causes (504831882) Iron deficiency anemia due to dietary causes (D50.8) Active confirmed Vital Signs Weight 110.8 lbs 11/03/2024 Blood pressure systolic 120 mm Hg 11/04/19 25 Blood pressure diastolic 70L 140 mm Hg 025 Heart Rate 72 /min 11/03/2024 Height 62.25 in 11/03/2024 BMI 20.10 kg/m2 11/03/2024 Encounters Encounter Location Date Provider Diagnosis [facility] [address] [facility] [address] [place] [phone] 11/03/2024 Anahy Juarez Hypothyroidism (acquired) E03.9 ; Osteoporosis M81.0 ; Iron deficiency anemia secondary to inadequate dietary iron intake D50.8 and Hyperlipidemia, unspecified hyperlipidemia type E78.5 Assessments Encounter Date Diagnosis (ICD Code) Assessment Notes Treatment Notes Treatment Clinical Notes Section Notes 11/03/2024 Hypothyroidism (acquired) (ICD-10 - E03.9) 11/03/2024 Osteoporosis (ICD-10 - M81.0) 11/03/2024 Iron deficiency anemia secondary to inadequate dietary iron intake (ICD-10 - D50.8) 11/03/2024 Hyperlipidemia, unspecified hyperlipidemia type (ICD-10 - E78.5) Plan Of Treatment Medication Medication Name Sig Start Date Stop Date Notes Risedronate Sodium 35 MG [address] 30 minutes before the first food or drink, other than water, of the day Orally; Duration: 30 day(s) 11/03/2024 Rosuvastatin Calcium 10 MG take 1 tablet by mouth on sunday, sunday and sunday or as directed; Duration: 60 days Levothyroxine Sodium 25 MCG TAKE 1 TABLE T BY MOUTH EVERY DAY; Duration: 90 days Next Appt Details Follow Up: 4 Months, Reason: Progress Notes * Jody BENJAMINOB:1965 (60 yo F)Acc No.[id number]:11/03/2024 Progress Notes Patient: [place] QUEZADA Provider: Anahy Juarez M.D. :1965 A ge:59 Y S ex:Female Date:11/03/2024 Address:[address] [place] [address] [place], [phone] Subjective: * Chief Complaints: * 1 . Refills. * HPI: C ardiology: The pt is here for a check up on Hyperlipidemia and Hypothyroidism. Pt states she is doing good and denies any new concerns today. Pt states she is needing refills sent to [facility] in [place]. Pt states she is out of the Levothyroxine and Rosuvastatin. Denies : Chest Pain. D enies : Short of Breath. D enies : Dizziness. D enies : Palpitations. D enies : Fatigue. O steoporosis therapy: See 06/2024 Dexa scan, shows definite osteoporosis. Cost of Prolia is prohibitive. * ROS: D ERMATOLOGY: no R mirta. n o H zay. G ASTROENTEROLOGY: no N ausea. n o V omiting. n o D iarrhea.? U ROLOGY: no D ifficulty urinating. n o B lood in urine. * Medical History: H yperlipidemia, Covid Vaccine J&J - Nov 2020, COVID 19 Bivalent Booster, 2021, Flu shot 2021. , COVID 19 Booster, February 2022. * Surgical [...] orally Two times a day , Taking Levothyroxine Sodium 25 MCG Tablet TAKE 1 TABLET BY MOUTH EVERY DAY , Taking Vitamin B-12 1000 MCG Tablet 1 tab(s) orally once a day , Taking D3-50 1.25 MG (21101 UT) Capsule 1 capsule weekly , Taking Rosuvastatin Calcium 10 MG Tablet TAKE 1 TABLET BY MOUTH ON SUNDAY, SUNDAY AND SUNDAY OR DIRECTED , Not-Taking Meclizine HCl 25 MG Tablet 1 tab(s) orally 3 times a day , Discontinued Prolia 60 MG/ML Solution Prefilled Syringe as directed Subcutaneous , Medication List reviewed and reconciled with the patient * Allergies: R aloxifene: hot flashes - Side Effects, Alendronate Sodium. Objective: * Vitals: W t:110.8, Temp:98.5, BP:120/70L 140/80R, HR:72, Nurse:TIA, Ht: 62.25, BMI:20.10. * Examination: G eneral Examination: General Appearance: [...] leg edema. ? Assessment: * Assessment: 1. H ypothyroidism (acquired) - E03.9 (Primary) 2 . O steoporosis - M81.0? 3. I alejandro deficiency anemia secondary to inadequate dietary iron intake - D50.8? 4. H yperlipidemia, unspecified hyperlipidemia type - E78.5 Plan: * Treatment: Value Reference Range T SH 1.95 0.43-5.25 - mU/L * Rachele El Ann Marie 11/05/2024 4:52 :40 PM >Patient informed of normal results. 2.?Osteoporosis? Start Risedronate Sodium Tablet, 35 MG, 1 tablet at least 30 minutes before the first food or drink, other than water, of the day, Orally, 30 day(s), 4.?? 3.?Iron deficiency anemia secondary to inadequate dietary iron intake?LAB: CBC Venipuncture (in house) (Collection Date & Time - 11/03/2024)* Value Reference Range w bc 5.8 3.5 - 10 * l ymph 27.1% 15 - 50 * m id 6.1% 2 - 15 * g ran 66.8% 35 - 80 * r bc 3.91 3.5 - 5.5 * h gb 12.3 11.5 - 16.5 * h ct 35.8 35 - 55 * m cv 91.5 75 - 100 * m ch 31.5 25 - 35 * m chc 34.4 31 - 38 * p latlet 227 100 - 400 * Dary Chaudhry 11/03/2024 3:53:00 PM > , Provider reviewed results while patient in office. 4.?Hyperlipidemia, unspecified hyperlipidemia type? Refill Rosuvastatin Calcium Tablet, 10 MG, take 1 tablet by mouth on sunday, sunday and sunday or as directed, 60 days, 30 Tablet, Refills 3.?LAB: P-Comprehensive Metabolic Panel (CMP) (Collection Date & Time - 11/03/2024 02:35 PM)?Normal* Value Reference Range A /G Ratio 1.8 1.1-2.5 - * A lbumin 4.4 3.5-5.3 - g/dL * A lkaline Phosphatase 93 35-121 - IU/L * A LT (SGPT) 21 <5-47 - IU/L * A ST (SGOT) 24 <5-40 - IU/L * B ilirubin, Total 0.5 <0.2-1.2 - mg/dL * B UN 15 8-23 - mg/dL * C alcium 9.4 8.6-10.4 - mg/dL * C hloride 101 97-108 - mmol/L * C O2 26 22-32 - mmol/L * C reatinine 0.67 0.50-1.00 - mg/dL * G lucose 91 65-99 - mg/dL * P otassium 4.2 3.5-5.3 - mmol/L * S odium 138 135-145 - mmol/L * P rotein 6.8 6.0-8.3 - g/dL * e GFR by Creatinine 100 >59 - mL/min/1.73m2 * Rachele El 11/05/2024 4:52 :40 PM >Patient informed of normal results. * Procedure Codes: 8 5025 CBC WITH AUTO DIFF, 470[address] VENIPUNCT, ROUTINE*, 3074F SYST BP LT 130 MM HG, 3078F DIAST BP < 80 MM HG * Follow Up: 4 Months * Images: Billing Information: * Visit Code: 98754 Office Visit, Est Pt., Level 4. * Procedure Codes: 78611 CBC WITH AUTO DIFF. 46485 VENIPUNCT, ROUTINE*. 3074F SYST BP LT 130 MM HG. 3078F DIAST BP < 80 MM HG. * Electronic signature of Anahy Juarez MD on 09/02/2025 at 01:44 PM EST Sign off status: Pending * Provider: Anahy Juarez M.D. Date: 0 11/03/2024 Generated for Vivian sharif/Evonne/Dashsmitting on: 1 01:44 PM EST History and Physical Notes * HPI (History of Present Illness) Category Sub-Category Detail Notes Category Not es Cardiology Short of Breath Chest Pain Palpitations Dizziness Fatigue Osteoporosis therapy See 2023 Dexa scan, shows definite osteoporosis. Cost of Prolia is prohibitive. Examination Category Sub-Category Detail Notes Category Not [...]
--- OUTSIDE RECORDS SUMMARY | 2024-12-10 08:30 | XMS_ITS ---
Author Organization [facility] Address [address] [facility] [address] [place] [phone] Care Team Providers Care Ethics Officer Name Role Phone Anahy Juarez Primary Care Provider Nuvia Hollingsworth Unavailable [phone] Allergies Allergen (clinical drug ingredient) Drug/Non Drug Allergy documented on EMR Reaction Allergy Type Onset Date Status alendronate Alendronate Sodium Unknown Drug Allergy Active raloxifene Raloxifene hot flashes Drug Allergy Act april Results Component Value Reference Range Notes Urinalysis - Inhouse Reviewed date:12/11/2024 01:27:13 PM Interpretation: Performing Lab: Notes/Report: Color/Clarity yellow/clear Leuk Neg Nitrite Neg Urobili 3.2 Protein Neg pH 7.0 Blood 1+ Sp. Gr. 1.010 Ketone Neg Bili Neg Gluc Neg P-Culture, Urine Reviewed date:12/12/2024 03:02:01 PM Interpretation:No Growth Performing Lab: Notes/Report: Test performed by [facility] [address] [place] [address] , [address], [place] [address] Garth Azevedo MD, Negative Retoucher CLIA: [id number] Specimen Source Urine - Void Culture, Urine See Below Final Report : No growth REASON FOR VISIT bladder problems Medications Medication SIG (Take, Route, Frequency, Duration) Notes Start Date End Date Status Rosuvastatin Calcium 10 MG take 1 tablet by mouth on sunday, sunday and sunday or as directed; Duration: 60 days Active Risedronate Sodium 35 MG TAKE 1 TABLET B Y MOUTH ONCE WEEKLY AT LEAST 30 MINUTES BEFORE FIRST FOOD OR DRINK OF THE DAY OTHER THAN WATER.; Duration: 84 Active FeroSul 325 (65 Fe) MG TAKE 1 TABLET BY MOUTH TWICE DAILY; Duration: 30 Active Vitamin B-12 1000 MCG TAKE 1 TABLET BY M OUTH DAILY; Duration: 30 Active Meclizine HCl 25 MG 1 tab(s) orally 3 times a day Not-Taking Fish Oil 1000 MG 1 cap(s) orally 2 times a day; Duration: 30 day(s) 10/15/2019 Active Fluticasone Propionate 50 MCG/ACT 1 spray(s) in each nostril once a day; Duration: 30 day(s) 02/09/2021 Active D3-50 1.25 MG (59778 UT) 1 capsule weekly Active Levothyroxine Sodium 25 MCG TAKE 1 TABLET BY MOUTH EVERY DAY; Duration: 90 days Active Cipro 250 MG 1 tablet Orally ever y 12 hrs; Duration: 7 days 12/10/2024 Active Coenzyme Q10 100 MG 1 cap(s) orally once a day; Duration: 30 day(s) 07/09/2019 Active Vital Signs Weight 111.2 lbs 12/10/2024 Blood pressure systolic 140 mm Hg 12/11/19 25 Blood pressure diastolic 80 mm Hg 025 Heart Rate 69 /min 12/10/2024 Height 62.25 in 12/10/2024 BMI 20.17 kg/m2 12/10/2024 Encounters Encounter Location Date Provider Diagnosis [facility] [address] [facility] [address] [phone] 12/10/2024 Nuvia Rinalditristen Dysuria R30.0 and BM I 20.0-20.9, adult Z68.20 Assessments Encounter Date Diagnosis (ICD Code) Assessment Notes Treatment Notes Treatment Clinical Notes Section Notes 12/10/2024 Dysuria (ICD-10 - R30.0) Increase water intake, no caffeine, no baths only showers 12/10/2024 BMI 20.0-20.9, adult (ICD-10 - Z68.20) Plan Of Treatment Medication Medication Name Sig Start Date Stop Date Notes Cipro 250 MG 1 tablet Orally ever y 12 hrs; Duration: 7 days 12/10/2024 Treatment Notes Assessment Notes Dysuria Increase water intak e, no caffeine, no baths only showers Next Appt Details Follow Up: via phone to repo rt test results, Reason: Progress Notes * Jody BENJAMINOB:1965 (60 yo F)Acc No.[id number]:12/10/2024 Progress Notes Patient: [place] QUEZADA Provider: DAISHA Figueroa :1965 A ge:59 Y S ex:Female Date:12/10/2024 Address:[address] [place] [address] [place] [phone] Pcp:Anahy Juarez Subjective: * Chief Complaints: * 1 . Bladder problems. * HPI: U rology: The pt states she started about 10 days ago with low abdominal pressure and urinary frequency. Pt states the frequency has improved but has a fruity smell to her urine. 59 year old female presents with c/o suprapubic pain. Denies : frequent urination. D enies : burning sensation.?Denies : hematuria. D enies : fever. * ROS: C ARDIOLOGY: no C hest pain. n o P alpitations. D ERMATOLOGY: no R mirta. n o H zay. G ASTROENTEROLOGY: no N ausea. n o V omiting. n o D iarrhea.? * Medical History: H yperlipidemia, Covid Vaccine [...] each nostril once a day , Taking D3-50 1.25 MG (82427 UT) Capsule 1 capsule weekly , Taking Levothyroxine Sodium 25 MCG Tablet TAKE 1 TABLET BY MOUTH EVERY DAY , Taking Rosuvastatin Calcium 10 MG Tablet take 1 tablet by mouth on sunday, sunday and sunday or as directed , Taking Risedronate Sodium 35 MG Tablet TAKE 1 TABLET BY MOUTH ONCE WEEKLY AT LEAST 30 MINUTES BEFORE FIRST FOOD OR DRINK OF THE DAY OTHER THAN WATER. , Taking FeroSul 325 (65 Fe) MG Tablet TAKE 1 TABLET BY MOUTH TWICE DAILY , Taking Vitamin B-12 1000 MCG Tablet TAKE 1 TABLET BY MOUTH DAILY , Not-Taking Meclizine HCl 25 MG Tablet 1 tab(s) orally 3 times a day , Medication List reviewed and reconciled with the patient * Allergies: R aloxifene: hot flashes - Side Effects, Alendronate Sodium. Objective: * Vitals: W t:111.2, Temp:99.0, BP:140/80, HR:69, Nurse:TIA, Ht: 62.25, BMI:20.17. * Examination: G eneral Examination: General Appearance: N AD. C hest: n ormal shape and expansion. H eart: R SR. L ungs: c lear to auscultation. A bdomen: bowel sounds present, soft, ttp over the suprapubic area. Assessment: * Assessment: 1. D ysuria - R30.0 (Primary) 2 . B NE 20.0-20.9, adult - Z68.20 Plan: * Treatment: Value Reference Range C ulture, Urine See Below - * S pecimen Source Urine - Void - * Leti Sarah 12/12/2024 03:0 1:49 PM > Pt informed ?LAB: Urinalysis - Inhouse (Collection Date & Time - 12/10/2024)* Value Reference Range C olor/Clarity yellow/clear * L euk Neg * N itrite Neg * U robili 3.2 * P rotein Neg * p H 7.0 * B lood 1+ * S p. Gr. 1.010 * K etone Neg * B vanessa Neg * G marilu Neg * Rachele El Ann Marie 12/11/2024 1:1 3:40 PM > Provider reviewed results while patient in office. Notes: Increase water intake, no caffeine, no baths only showers?? * Procedure Codes: 8 1002 Urinalysis, no micro, 3077F SYST BP = 140 MM HG6 IT, 3079F DIAST BP 80-89 MM HG * Follow Up: v ia phone to report test results * Images: Billing Information: * Visit Code: 85532 Office Visit, Est Pt., Level 3. * Procedure Codes: 16796 Urinalysis, no micro. 3077F SYST BP = 140 MM HG6 IT. 3079F DIAST BP 80-89 MM HG. * Electronic signature of DAISHA Candelaria on 09/02/2025 at 01:45 PM EST Sign off status: Pending * Provider: DAISHA Figueroa Date: 0 12/10/2024 Generated for Vivian sharif/Evonne/eTransmitting on: 1 01:45 PM EST History and Physical Notes * HPI (History of Present Illness) Category Sub-Category Detail Notes Category Not es Urology frequent urination burning sensation suprapubic pain hematuria fever Examination Category Sub-Category Detail Notes Category Not es General Examination Heart: RSR Lungs: clear to auscultatio n Abdomen: bowel sounds present , soft, ttp over the suprapubic area General Appearance: NAD Chest: normal shape and exp ansion
--- OUTSIDE RECORDS SUMMARY | 2025-02-23 10:00 | XMS_ITS ---
Author Organization [facility] Address [address] [place] [id number] Care Team Providers Care Milk Bottler Name Role Phone Anahy Juarez Primary Care Provider Allergies Allergen (clinical drug ingredient) Drug/Non Drug Allergy documented on EMR Reaction Allergy Type Onset Date Status alendronate Alendronate Sodium Unknown Drug Allergy Active raloxifene Raloxifene hot flashes Drug Allergy Act april Results Component Value Reference Range Notes CBC Venipuncture (in house) Reviewed date:02/27/2025 03:38:54 PM Interpretation: Performing Lab: Notes/Report: wbc 7.4 3.5 - 10 lymph 27.0% 15 - 50 mid 6.4% 2 - 15 gran 66.6% 35 - 80 rbc 3.77 3.5 - 5.5 hgb 11.6 11.5 - 16.5 hct 34.9 35 - 55 mcv 92.7 75 - 100 mch 30.9 25 - 35 mchc 33.3 31 - 38 platlet 221 100 - 400 P-Comprehensive Metabolic Pa nadiya (CMP) Reviewed date:03/03/2025 01:26:34 PM Interpretation:Normal Performing Lab: Notes/Report: Test performed by [facility], [facility] [address] [place] [address] , [address], [place] [address] Garth Azevedo MD, Locker Plant Attendant CLIA: [id number] Sodium 135 135-145 mmol/L Potassium 3.9 3.5-5.3 mmol/L Chloride 101 97-108 mmol/L CO2 23 20-32 mmol/L Glucose 99 65-99 mg/dL BUN 14 8-23 mg/dL Creatinine 0.67 0.50-1.00 mg/dL Calcium 9.0 8.6-10.4 mg/dL eGFR by Creatinine 99 >59 mL/min/1.73m2 Protein 6.4 6.0-8.3 g/dL Albumin 4.2 3.5-5.3 g/dL Alkaline Phosphatase 91 35-121 IU/L ALT (SGPT) 18 <5-47 IU/L AST (SGOT) 20 <5-40 IU/L Bilirubin, Total 0.5 <0.2-1.2 mg/dL A/G Ratio 1.9 1.1-2.5 P-TSH Reviewed date:03/03/2025 01:26:34 PM Interpretation:Normal Performing Lab: Notes/Report: Test performed by [facility] [address] , [address] , [place] [address] Garth Azevedo MD, Locker Plant Attendant CLIA: [id number] TSH 2.32 0.43-5.25 mU/L EKG Reviewed date:03/03/2025 01:26:34 PM Interpretation: Performing Lab: Notes/Report: REASON FOR VISIT Not Feeling Well Medications Medication SIG (Take, Route, Frequency, Duration) Notes Start Date End Date Status Vitamin B-12 1000 MCG TAKE 1 TABLET BY M OUTH DAILY; Duration: 30 Active Meclizine HCl 25 MG 1 tab(s) orally 3 times a day Not-Taking FeroSul 325 (65 Fe) MG TAKE 1 TABLET BY MOUTH TWICE DAILY; Duration: 30 Active Metoprolol Succinate ER 25 MG 1 tablet Orally Once a day; Duration: 30 days 02/23/2025 Active Rosuvastatin Calcium 10 MG take 1 tablet by mouth on sunday, sunday and sunday or as directed; Duration: 60 days Active Risedronate Sodium 35 MG TAKE 1 TABLET B Y MOUTH ONCE WEEKLY AT LEAST 30 MINUTES BEFORE FIRST FOOD OR DRINK OF THE DAY OTHER THAN WATER.; Duration: 84 Not-Taking Levothyroxine Sodium 25 MCG TAKE 1 TABLET BY MOUTH EVERY DAY; Duration: 90 days Active Fluticasone Propionate 50 MCG/ACT 1 spray(s) in each nostril once a day; Duration: 30 day(s) 02/09/2021 Active D3-50 1.25 MG (81218 UT) 1 capsule weekly Active Coenzyme Q10 100 MG 1 cap(s) orally once a day; Duration: 30 day(s) 07/09/2019 Active Fish Oil 1000 MG 1 cap(s) orally 2 times a day; Duration: 30 day(s) 10/15/2019 Active Vital Signs Weight 110.8 lbs 02/23/2025 Blood pressure systolic 132 mm Hg 02/24/20 25 Blood pressure diastolic 80 mm Hg 025 Heart Rate 73 /min 02/23/2025 Height 62.25 in 02/23/2025 BMI 20.1 kg/m2 02/23/2025 Encounters Encounter Location Date Provider Diagnosis [facility] [address] [facility] [address] [place] [id number] 02/23/2025 Anahy Juarez Primary hypertension I10 ; Hypothyroidism (acquired) E03.9 ; Chest discomfort R07.89 and BMI 20.0-20.9, adult Z68.20 Assessments Encounter Date Diagnosis (ICD Code) Assessment Notes Treatment Notes Treatment Clinical Notes Section Notes 02/23/2025 Primary hypertension (ICD-10 - I10) 02/23/2025 Hypothyroidism (acquired) (ICD-10 - E03.9) 02/23/2025 Chest discomfort (ICD-10 - R07.89) 02/23/2025 BMI 20.0-20.9, adult (ICD-10 - Z68.20) Plan Of Treatment Medication Medication Name Sig Start Date Stop Date Notes Metoprolol Succinate ER 25 MG 1 tablet O rally Once a day; Duration: 30 days 02/23/2025 Next Appt Details Follow Up: 2 Weeks, Reason: Progress Notes * Jimmy BENJAMINOlegOB:1965 (60 yo F)Acc No.[id number]:02/23/2025 Progress Notes Patient: [place] QUEZADA Provider: Anahy Juarez M.D. :1965 A ge:59 Y S ex:Female Date:02/23/2025 Address:[address] [place] [address] [phone] Subjective: * Chief Complaints: * 1 . Not Feeling Well. * HPI: C ardiology: The pt is here today with c/o shortness of breath that is worse with exertion. Pt states she has had some upper back pain off and on. Pt states she has noticed some intermittent increase in her heart rate. 59 year old female presents with c/o Short of Breath. c/o Palpitations f eels heart racing. Denies : Chest Pain. D enies : Dizziness. * ROS: D ERMATOLOGY: no R mirta. [...] Booster, February 2022. * Surgical History: T shawna tied 1996. * Hospitalization/Major Diagno stic Procedure: C hildbirth 1984, Childbirth 1992, Malaria 1982. * Family History: F ather: 89 yrs, hypertension. M other: 85 yrs, diabetes, hypertension.?1 brother(s) , 3 sister(s) - healthy. 1 [...] a day , Taking D3-50 1.25 MG (54828 UT) Capsule 1 capsule weekly , Taking Levothyroxine Sodium 25 MCG Tablet TAKE 1 TABLET BY MOUTH EVERY DAY , Taking Rosuvastatin Calcium 10 MG Tablet take 1 tablet by mouth on sunday, sunday and sunday or as directed , Taking FeroSul 325 (65 Fe) MG Tablet TAKE 1 TABLET BY MOUTH TWICE DAILY , Taking Vitamin B-12 1000 MCG Tablet TAKE 1 TABLET BY MOUTH DAILY , Not-Taking Risedronate Sodium 35 MG Tablet TAKE 1 TABLET BY MOUTH ONCE WEEKLY AT LEAST 30 MINUTES BEFORE FIRST FOOD OR DRINK OF THE DAY OTHER THAN WATER. , Not-Taking Meclizine HCl 25 MG Tablet 1 tab(s) orally 3 times a day , Discontinued Cipro 250 MG Tablet 1 tablet Orally every 12 hrs , Medication List reviewed and reconciled with the patient * Allergies: R aloxifene: hot flashes - Side Effects, Alendronate Sodium. Objective: * Vitals: W t: 110.8, Temp: 98.3, BP: 132/80, HR: 73, Nurse: TIA, Ht: 62.25, Repeat BP: 154/74, BMI:20.1. * Examination: G eneral Examination: General Appearance: N AD. H EENT: u nremarkable.?Oral cavity: n o lesions, mucosa moist and WNL, no erythema. N dana: s upple, no lymphadenopathy. C hest: n ormal shape and expansion. H eart: R SR, no ectopics. L ungs: c lear to auscultation. A bdomen: soft and nontender, no organomegaly or masses.?Neurologic Exam: I ntact, gait normal. S kin: n ormal, no rash. P eripheral pulses: n ormal . B ack: no CVA tenderness. E xtremities: n o leg edema. ? Assessment: * Assessment: 1. P rimary hypertension - I10 (Primary) 2 . H ypothyroidism (acquired) - E03.9 3 . C hest discomfort - R07.89 4 . B AL 20.0-20.9, adult - Z68.20 Plan: * Treatment: Value Reference Range A /G Ratio 1.9 1.1-2.5 - * A lbumin 4.2 3.5-5.3 - g/dL * A lkaline Phosphatase 91 35-121 - IU/L * A LT (SGPT) 18 <5-47 - IU/L * A ST (SGOT) 20 <5-40 - IU/L * B ilirubin, Total 0.5 <0.2-1.2 - mg/dL * B UN 14 8-23 - mg/dL * C alcium 9.0 8.6-10.4 - mg/dL * C hloride 101 97-108 - mmol/L * C O2 23 20-32 - mmol/L * C reatinine 0.67 0.50-1.00 - mg/dL * G lucose 99 65-99 - mg/dL * P otassium 3.9 3.5-5.3 - mmol/L * S odium 135 135-145 - mmol/L * P rotein 6.4 6.0-8.3 - g/dL * e GFR by Creatinine 99 >59 - mL/min/1.73m2 * Rachele El 03/03/2025 01: 26:09 PM EDT > Patient informed of normal results. 2.?Hypothyroidism (acquired)?LAB: P-TSH (Collection Date & Time - 02/23/2025 02:15 PM)?Normal* Value Reference Range T SH 2.32 0.43-5.25 - mU/L * Rachele El 03/03/2025 01: 26:09 PM EDT > Patient informed of normal results. 3.?Chest discomfort?LAB: CBC Venipuncture (in house) (Collection Date & Time - 02/23/2025)* Value Reference Range w bc 7.4 3.5 - 10 * l ymph 27.0% 15 - 50 * m id 6.4% 2 - 15 * g ran 66.6% 35 - 80 * r bc 3.77 3.5 - 5.5 * h gb 11.6 11.5 - 16.5 * h ct 34.9 35 - 55 * m cv 92.7 75 - 100 * m ch 30.9 25 - 35 * m chc 33.3 31 - 38 * p latlet 221 100 - 400 * Rachele El 02/23/2025 04 :13:33 PM EDT > Provider reviewed results while patient in office. ?Imaging: EKG (Performed Date - 02/23/2025)* Rachele El 03/03/2025 01: 26:09 PM EDT > Patient informed of normal results. * Procedure Codes: 8 5025 CBC WITH AUTO DIFF, 95729 VENIPUNCT, ROUTINE*, 1036F TOBACCO NON-USER, G8950 PREHTN/HTN BP DOC INDCD F/U DOC, G8752 MOST RECENT SYSTOLIC BP < 140MM HG, G8754 MOST RECENT DIASTOLIC BP < 90MM HG, G8420 BMI<30 AND >=22 CALC & DOCU * Follow Up: 2 Weeks * Images: Billing Information: * Visit Code: 62666 Office Visit, Est Pt., Level 4. * Procedure Codes: 39274 CBC WITH AUTO DIFF. 66612 VENIPUNCT, ROUTINE*. 1036F TOBACCO NON-USER. G8950 PREHTN/HTN BP DOC INDCD F/U DOC. G8752 MOST RECENT SYSTOLIC BP < 140MM HG. G8754 MOST RECENT DIASTOLIC BP < 90MM HG. G8420 BMI<30 AND >=22 CALC & DOCU. * Electronic signature of Anahy Juarez MD on 09/02/2025 at 01:45 PM EST Sign off status: Pending * Provider: Anahy Juarez M.D. Date: 0 02/23/2025 Generated for Vivian sharif/Evonne/eTransmitting on: 01:45 PM EST History and Physical Notes * HPI (History of Present Illness) Category Sub-Category Detail Notes Category Not es Cardiology Short of Breath Chest Pain Palpitations feels heart racing Dizziness Examination Category Sub-Category Detail Notes Category Not es General Examination HEENT: unremarkable Heart: RSR, no ectopics Lungs: clear to auscultatio n Abdomen: soft [...]
--- OUTSIDE RECORDS SUMMARY | 2025-07-20 09:00 | XMS_ITS ---
[facility] Organization [facility] Address [address] [place] [id number] Care Team Providers Care Tank Builder Helper Name Role Phone Anahy Juarez Primary Care Provider Allergies Allergen (clinical drug ingredient) Drug/Non Drug Allergy documented on EMR Reaction Allergy Type Onset Date Status alendronate Alendronate Sodium Unknown Drug Allergy Active raloxifene Raloxifene hot flashes Drug Allergy Act april REASON FOR VISIT check up, Needs shingles vaccine Medications Medication SIG (Take, Route, Frequency, Duration) Notes Start Date End Date Status Meclizine HCl 25 MG 1 tab(s) orally 3 times a day Not-Taking D3-50 1.25 MG (75928 UT) 1 capsule Orall y once a week; Duration: 30 days Active Vitamin B-12 1000 MCG 1 tablet Orally On ce a day; Duration: 30 days Active Risedronate Sodium 35 MG TAKE 1 TABLET B Y MOUTH ONCE WEEKLY AT LEAST 30 MINUTES BEFORE FIRST FOOD OR DRINK OF THE DAY OTHER THAN WATER.; Duration: 84 Not-Taking FeroSul 325 (65 Fe) MG 1 tablet Orally t wice a day; Duration: 30 days Active Coenzyme Q10 100 MG 1 cap(s) orally once a day; Duration: 30 day(s) 07/09/2019 Active Fish Oil 1000 MG 1 cap(s) orally 2 times a day; Duration: 30 day(s) 10/15/2019 Active Fluticasone Propionate 50 MCG/ACT 1 spray(s) in each nostril once a day; Duration: 30 day(s) 02/09/2021 Active Rosuvastatin Calcium 10 MG take 1 tablet by mouth on sunday, sunday and sunday or as directed; Duration: 60 days Not-Taking Metoprolol Succinate ER 25 MG 1 tablet Orally Once a day; Duration: 90 days Active Levothyroxine Sodium 25 MCG 1 tablet in the morning on an empty stomach Orally Once a day; Duration: 90 days Active Vital Signs Weight 111.0 lbs 07/20/2025 Blood pressure systolic 122 mm Hg 07/20/20 25 Blood pressure diastolic 70 mm Hg 025 Heart Rate 58 /min 07/20/2025 Height 62.25 in 07/20/2025 BMI 20.14 kg/m2 07/20/2025 Encounters Encounter Location Date Provider Diagnosis [facility] [address] [facility] [address] [place], [place] [phone] 07/20/2025 Anahy Juarez Palpitations R00.2 ; Osteoporosis M81.0 ; Other vitamin B12 deficiency anemia D51.8 ; Iron deficiency anemia secondary to inadequate dietary iron intake D50.8 ; Hypothyroidism (acquired) E03.9 and Hyperlipidemia, unspecified hyperlipidemia type E78.5 Assessments Encounter Date Diagnosis (ICD Code) Assessment Notes Treatment Notes Treatment Clinical Notes Section Notes 07/20/2025 Palpitations (ICD-10 - R00.2) 07/20/2025 Osteoporosis (ICD-10 - M81.0) 07/20/2025 Other vitamin B12 deficiency anemia (ICD-10 - D51.8) 07/20/2025 Iron deficiency anemia secondary to inadequate dietary iron intake (ICD-10 - D50.8) 07/20/2025 Hypothyroidism (acquired) (ICD-10 - E03.9) 07/20/2025 Hyperlipidemia, unspecified hyperlipidemia type (ICD-10 - E78.5) Plan Of Treatment Medication Medication Name Sig Start Date Stop Date Notes FeroSul 325 (65 Fe) MG 1 tablet Orally t wice a day; Duration: 30 days Metoprolol Succinate ER 25 MG 1 tablet O rally Once a day; Duration: 90 days Levothyroxine Sodium 25 MCG 1 tablet in the morning on an empty stomach Orally Once a day; Duration: 90 days Next Appt Details Follow Up: 6 Months, Reason: Progress Notes * Jody BENJAMINOB:1965 (60 yo F)Acc No.[id number]:07/20/2025 Progress Notes Patient: [place] QUEZADA Provider: Anahy Juarez M.D. :1965 A ge:60 Y S ex:Female Date:07/20/2025 Address:[address] [place] [address] [phone] Subjective: * Chief Complaints: * 1 . Check up. 2. Needs shingles vaccine. * HPI: C ardiology: The pt is here for a check up. Pt states she is taking the Metoprolol and says that since then my life has gotten better! She denies any medication side effects. Pt is not fasting. Denies : Chest Pain. D enies : Short of Breath. D enies : Dizziness. D enies : Palpitations. G astroenterology: COLOGUARD WAS NEGATIVE IN JUNE. * ROS: C ONSTITUTIONAL: [facility]? No, Change in medication since last visit? No, Are you taking antibiotics? No, Are you taking steroids? No. D ERMATOLOGY: no R mirta. n o H zay. G ASTROENTEROLOGY: no N ausea. n o V omiting. n o D iarrhea.? U ROLOGY: no D ifficulty urinating. n o B lood in urine. * Medical History: H yperlipidemia, Covid Vaccine J&J - Nov 2020, COVID 19 Bivalent Booster, 2021, Flu shot 2021. , COVID 19 Booster, February 2022, COLOGUARD NEG 06/2025. * Surgical History: T ubes tied 1996. [...] a day , Taking D3-50 1.25 MG (65373 UT) Capsule 1 capsule Orally once a week , Taking FeroSul 325 (65 Fe) MG Tablet 1 tablet Orally twice a day , Taking Levothyroxine Sodium 25 MCG Tablet 1 tablet in the morning on an empty stomach Orally Once a day , Taking Metoprolol Succinate ER 25 MG Tablet Extended Release 24 Hour 1 tablet Orally Once a day , Taking Vitamin B-12 1000 MCG Tablet 1 tablet Orally Once a day , Not-Taking Rosuvastatin Calcium 10 MG Tablet take 1 tablet by mouth on sunday, sunday and sunday or as directed , Not- Taking Risedronate Sodium 35 MG Tablet TAKE [...] Alendronate Sodium. Objective: * Vitals: W t: 111.0, Temp: 98.1, BP: 122/70, HR: 58, Nurse: TIA, Ht: 62.25, BMI:20.14. * Examination: G eneral Examination: General Appearance: [...] edema. ? Assessment: * Assessment: 1. P alpitations - R00.2 (Primary) 2 . O steoporosis - M81.0 ?3. O ther vitamin B12 deficiency anemia - D51.8 4 . I alejandro deficiency anemia secondary to inadequate dietary iron intake - D50.8 5 . H ypothyroidism (acquired) - E03.9 6 . H yperlipidemia, unspecified hyperlipidemia type - E78.5 ? Plan: * Treatment: 2. I alejandro deficiency anemia secondary to inadequate dietary iron intake Refill FeroSul Tablet, 325 (65 Fe) MG, 1 tablet, Orally, twice a day, 30 days, 100 Tablet, Refills 3. 3. H ypothyroidism (acquired) Refill Levothyroxine Sodium Tablet, 25 MCG, 1 tablet in the morning on an empty stomach, Orally, Once a day, 90 days, 90 Tablet, Refills 1. * Follow Up: 6 Months * Images: Billing Information: * Visit Code: 62966 Office Visit, Est Pt., Level 4. * Procedure Codes: * Electronic signature of Anahy Juarez MD on 09/02/2025 at 01:45 PM EST Sign off status: Pending * Provider: Anahy Juarez M.D. Date: 09/19/2024 Generated for Vivian sharif/Evonne/eTransmitting on: 01:45 PM EST History and Physical Notes * HPI (History of Present Illness) Category Sub-Category Detail Notes Category Not es Cardiology Short of Breath Chest Pain Palpitations Dizziness Examination Category Sub-Category Detail Notes Category [...]
--- OUTSIDE RECORDS SUMMARY | 2025-08-20 09:45 | XMS_ITS ---
[facility] Address [address] [place] [phone] Care Team Providers Care Roll Reclaimer Name Role Phone Anahy Juarez Primary Care Provider [phone] Allergies Allergen (clinical drug ingredient) Drug/Non Drug Allergy documented on EMR Reaction Allergy Type Onset Date Status alendronate Alendronate Sodium Unknown Drug Allergy Active raloxifene Raloxifene hot flashes Drug Allergy Act april Results Component Value Reference Range Notes Urinalysis - Inhouse Reviewed date:08/21/2025 09:24:21 AM Interpretation: Performing Lab: Notes/Report: Color/Clarity Yellow/clear Leuk Neg Nitrite Neg Urobili 3.2 Protein Neg pH 5.0 Blood Neg Sp. Gr. 1.010 Ketone Neg Bili Neg Gluc Neg CBC Fingerstick (in house) Reviewed date:08/21/2025 09:24:33 AM Interpretation: Performing Lab: Notes/Report: wbc 9.8 3.5 - 10 lym 22.2% 15 - 50 mid 5.0% 2 - 15 gran 72.8% 35 - 80 rbc 3.72 3.5 - 5.5 hgb 11.9 11.5 - 16.5 hct 34.7 35 - 55 mcv 93.1 75 - 100 mch 31.9 25 - 35 mchc 34.3 31 - 38 plat 179 100 - 400 REASON FOR VISIT poss UTI Medications Medication SIG (Take, Route, Frequency, Duration) Notes Start Date End Date Status Vitamin D3 1.25 MG (50858 UT) TAKE 1 CAPSULE BY MOUTH ONCE WEEKLY ON SAME DAY EACH WEEK; Duration: 28 Active FeroSul 325 (65 Fe) MG 1 tablet Orally t wice a day; Duration: 30 days Active Risedronate Sodium 35 MG TAKE 1 TABLET B Y MOUTH ONCE WEEKLY AT LEAST 30 MINUTES BEFORE FIRST FOOD OR DRINK OF THE DAY OTHER THAN WATER.; Duration: 84 Not-Taking Rosuvastatin Calcium 10 MG take 1 tablet by mouth on sunday, sunday and sunday or as directed; Duration: 60 days Not-Taking Meclizine HCl 25 MG 1 tab(s) orally 3 times a day Not-Taking Vitamin B-12 1000 MCG 1 tablet Orally On ce a day; Duration: 30 days Active Fluticasone Propionate 50 MCG/ACT 1 spray(s) in each nostril once a day; Duration: 30 day(s) 02/09/2021 Active Metoprolol Succinate ER 25 MG 1 tablet Orally Once a day; Duration: 90 days Active Levothyroxine Sodium 25 MCG 1 tablet in the morning on an empty stomach Orally Once a day; Duration: 90 days Active Fish Oil 1000 MG 1 cap(s) orally 2 times a day; Duration: 30 day(s) 10/15/2019 Active Ciprofloxacin HCl 500 MG 1 tablet Orally twice a day; Duration: 3 days 08/20/2025 Active Coenzyme Q10 100 MG 1 cap(s) orally once a day; Duration: 30 day(s) 07/09/2019 Active Vital Signs Weight 111.2 lbs 08/20/2025 Blood pressure systolic 120 mm Hg 08/20/20 25 Blood pressure diastolic 72 mm Hg 025 Heart Rate 59 /min 08/20/2025 Height 62.25 in 08/20/2025 BMI 20.17 kg/m2 08/20/2025 Encounters Encounter Location Date Provider Diagnosis [facility] [address] [place], [place] [phone] 08/20/2025 Anahy Juarez Dysuria R30.0 and Uterine leiomyoma, unspecified location D25.9 Assessments Encounter Date Diagnosis (ICD Code) Assessment Notes Treatment Notes Treatment Clinical Notes Section Notes 08/20/2025 Dysuria (ICD-10 - R30.0) 08/20/2025 Uterine leiomyoma, unspecified location (ICD-10 - D25.9) Plan Of Treatment Medication Medication Name Sig Start Date Stop Date Notes Ciprofloxacin HCl 500 MG 1 tablet Orally twice a day; Duration: 3 days 08/20/2025 Pending Test Test Name Order Date ultrasound : Transvaginal 08/20/2025 P-Culture, Urine 08/20/2025 Next Appt Details Follow Up: 4 Months, Reason: Progress Notes * Jody BNEJAMINOB:1965 (60 yo F)Acc No.[id number]:08/20/2025 Progress Notes Patient: [place] QUEZADA Provider: Anahy Juarez M.D. :1965 A ge:60 Y S ex:Female Date:08/20/2025 Address:[address] [place] [address] [phone] Subjective: * Chief Complaints: * 1 . poss UTI. * HPI: U rology: The pt is here today with some dyuria. Pt states she had some chills last night and some body aches. Pt states she has some pain at the end of urinating. Also c/o some low abdominal pain. 60 year old female presents with c/o suprapubic pain. Denies : hematuria. D enies : fever c hills. * ROS: C ONSTITUTIONAL: Positive for A [facility] physician seen since last visit? No, Change [...] each nostril once a day , Taking Vitamin B-12 1000 MCG Tablet 1 tablet Orally Once a day , Taking Levothyroxine Sodium 25 MCG Tablet 1 tablet in the morning on an empty stomach Orally Once a day , Taking Metoprolol Succinate ER 25 MG Tablet Extended Release 24 Hour 1 tablet Orally Once a day , Taking FeroSul 325 (65 Fe) MG Tablet 1 tablet Orally twice a day , Taking Vitamin D3 1.25 MG (58845 UT) Capsule TAKE 1 CAPSULE BY MOUTH ONCE WEEKLY ON SAME DAY EACH WEEK , Not-Taking Rosuvastatin Calcium 10 MG Tablet take 1 tablet by mouth on sunday, sunday and sunday or as directed , Not-Taking Risedronate Sodium 35 MG Tablet [...] Alendronate Sodium. Objective: * Vitals: W t: 111.2, Temp: 98.3, BP: 120/72, HR: 59, Nurse: TIA, Ht: 62.25, BMI:20.17. * Examination: G eneral Examination: General Appearance: N AD. H EENT: u nremarkable.?Oral cavity: n o lesions, mucosa moist and WNL, no erythema. N dana: s upple, no lymphadenopathy. C hest: n ormal shape and expansion. H eart: R SR, no ectopics. L ungs: c lear to auscultation. A bdomen: soft and nontender, no organomegaly or masses.? PELVIC US FROM 2012 REVIEWED. SMALL FIBROIDS. N eurologic Exam: I ntact, gait normal. S kin: n ormal, no rash. P eripheral pulses: n ormal . B ack: no CVA tenderness. E xtremities: n o leg edema. Assessment: * Assessment: 1. D ysuria - R30.0 (Primary) 2 . U terine leiomyoma, unspecified location - D25.9 Plan: * Treatment: Value Reference Range C olor/Clarity Yellow/clear * L euk Neg * N itrite Neg * U robili 3.2 * P rotein Neg * p H 5.0 * B lood Neg * S p. Gr. 1.010 * K etone Neg * B vanessa Neg * G marilu Neg * Rachele El 08/20/2025 0 3:09:15 PM EST > Provider reviewed results while patient in office. ?LAB: CBC Fingerstick (in house) (Collection Date & Time - 08/20/2025)* Value Reference Range w bc 9.8 3.5 - 10 * l ym 22.2% 15 - 50 * m id 5.0% 2 - 15 * g ran 72.8% 35 - 80 * r bc 3.72 3.5 - 5.5 * h gb 11.9 11.5 - 16.5 * h ct 34.7 35 - 55 * m cv 93.1 75 - 100 * m ch 31.9 25 - 35 * m chc 34.3 31 - 38 * p lat 179 100 - 400 * Rachele El 08/20/2025 0 4:07:58 PM EST > Provider reviewed results while patient in office. 2.?Uterine leiomyoma, unspecified location?Imaging: ultrasound : Transvaginal* Suasnna [place] 08/20/2025 04: 28:40 PM EST > faxed to [facility] Scheduling * Procedure Codes: 8 1002 Urinalysis, no micro, [address] CAPILLARY BLOOD DRAW, 70389 CBC WITH AUTO DIFF * Follow Up: 4 Months * Images: Billing Information: * Visit Code: 88623 Office Visit, Est Pt., Level 3. * Procedure Codes: 45951 Urinalysis, no micro. 13203 CAPILLARY BLOOD DRAW. 41432 CBC WITH AUTO DIFF. * Electronic signature of Anahy Juarez MD on 09/02/2025 at 01:44 PM EST Sign off status: Pending * Provider: Anahy Juarez M.D. Date: 10/21/2024 Generated for Vivian sharif/Evonne/eTransmitting on: 01:44 PM EST History and Physical Notes * HPI (History of Present Illness) Category Sub-Category Detail Notes Category Not es Urology suprapubic pain hematuria fever chills Examination Category Sub-Category Detail Notes Category Not es General Examination HEENT: unremarkable Heart: RSR, no ectopics Lungs: clear to auscultatio n Abdomen: soft and nontender, no organomegaly or masses. PELVIC US FROM 2012 REVIEWED. SMALL FIBROIDS Extremities: no leg edema General Appearance: NAD Skin: normal, no rash Neurologic Exam: Intact, gait normal Neck: supple, no lymphaden opathy Oral cavity: no lesions, mucosa m oist and WNL, no erythema Peripheral pulses: normal Back: no CVA tenderness Chest: normal shape and exp ansion
--- NOTE | 2025-09-02 13:44 | US_ITS ---
PROCEDURE: US TRANSVAGINAL CLINICAL INDICATION: UTEREINE LEIOMYOMA COMPARISON: No exams were available for comparison FINDINGS: Transvaginal sonographic images of the pelvis were obtained. UTERUS: 3.4cm x 3.9 cmx 2.1cm anteverted with a combined endometrial thickness of 2.6 mm. There is a small fibroid measuring 0.8 cm x 0.9 cm x 1.1 cm. LEFT OVARY: 2.5cmx1.2cmx1.2cm with a volume of 1.9ml. There is pelvic congestion in the left adnexa, uncertain clinical significance. RIGHT OVARY: 0.7 cmx 1.2cmx1.4cm with a volume of 0.6ml. Both ovaries are seen and appear atrophic. Doppler flow to both ovaries are seen. There is no fluid in the cul-de-sac. IMPRESSION: 1. Anteverted, small uterus. The endometrium is thin measuring 2.6 mm. There is a small fibroid measuring 1.1 cm within the myometrium. 2. Both ovaries are seen and appear atrophic. There is pelvic congestion in the left adnexa. 3. No fluid in the cul-de-sac. Dictated by: Peyman Rowe MD 09/03/2025 07:35 Peyman Rowe MD in [place] 09/03/2025 07:35
--- OUTSIDE RECORDS SUMMARY | 2025-09-02 13:46 | XMS_ITS | Patient Health Record ---
[facility] Organization [facility] [address] [facility] [address] [place] [phone] Care Team Providers Care Business Strategist Name Role Phone Anahy Juarez Primary Care Provider Nuvia Hollingsworth Unavailable [phone] Allergies Allergen (clinical drug ingredient) Drug/Non Drug [...] Interpretation:Normal Performing Lab: Notes/Report: Test performed by [facility] [address] [place] [address] , [address], [place] [address] Garth Azevedo MD, Educational Psychology Teacher CLIA: [id number] Sodium 138 135-145 mmol/L Potassium 4.2 3.5-5.3 [...] Interpretation:Normal Performing Lab: Notes/Report: Test performed by [facility] [address] [place] [address] , [address], [place] [address] Garth Azevedo MD, Educational Psychology Teacher CLIA: [id number] TSH 1.95 0.43-5.25 mU/L Urinalysis - Inhouse Reviewed date:08/21/2025 09:24:21 AM [...] - 38 plat 179 100 - 400 Cologuard Reviewed date:06/26/2025 12:11:23 PM Interpretation:Negative Performing Lab: Notes/Report: Negative Cologuard Negative P-AUSTIN Reviewed date:2025 11:34:29 AM Interpretation: Performing Lab: Notes/Report: P-Sed Rate (ESR) Reviewed date:2025 03:23:25 PM Interpretation:Normal Performing Lab: Notes/Report: CLIA: [id number] Garth Azevedo MD, Educational Psychology Teacher [address] [place] [address] [place] [address] Test performed by [facility] Erythrocyte Sedimentation Rate (ESR), Automated 11 <31 mm/hr P-Antinuclear Antibodies (AN A) Screen Reviewed date:2025 03:23:25 PM Interpretation:Normal Performing Lab: Notes/Report: Test performed by [facility] [address] [place] [address] , [place] [address] Garth Azevedo MD, Educational Psychology Teacher CLIA: [id number] Antinuclear Antibodies ([place]USTIN) Screen Negative Negative This test is perform ed by Multiplex Bead Immunoassay methodology. CBC Venipuncture (in house) Reviewed date:02/27/2025 03:38:54 [...] Interpretation:Normal Performing Lab: Notes/Report: Test performed by [facility] [address] [place] [address] , [address], [place] [address] Garth Azevedo MD, Educational Psychology Teacher CLIA: [id number] Sodium 135 135-145 mmol/L Potassium 3.9 3.5-5.3 [...] Interpretation:Normal Performing Lab: Notes/Report: Test performed by [facility] [address] [place] [address] [address], [place] [address] Garth Azevedo MD, Educational Psychology Teacher CLIA: [id number] TSH 2.32 0.43-5.25 mU/L EKG Reviewed date:03/03/2025 01:26:34 PM Interpretation: Performing Lab: Notes/Report: Urinalysis - Inhouse Reviewed date:12/11/2024 01:27:13 PM Interpretation: Performing Lab: Notes/Report: Color/Clarity yellow/clear Leuk Neg Nitrite Neg Urobili 3.2 Protein Neg pH 7.0 Blood 1+ Sp. Gr. 1.010 Ketone Neg Bili Neg Gluc Neg P-Culture, Urine Reviewed date:12/12/2024 03:02:01 PM Interpretation:No Growth Performing Lab: Notes/Report: Test performed by [facility] [address] [place] [address] [address], [place] [address] Garth Azevedo MD, Educational Psychology Teacher CLIA: [id number] Specimen Source Urine - Void Culture, Urine See Below Final Report : No growth Reason For Referral No Information Medications Medication SIG (Take, Route, Frequency, Duration) Notes Start Date End Date Status Ciprofloxacin HCl 500 MG 1 tablet Orally twice a day; Duration: 3 days 08/20/2025 Active FeroSul 325 (65 Fe) MG 1 [...] or as directed; Duration: 60 days Not-Taking Vitamin B-12 1000 MCG 1 tablet [...] Once a day; Duration: 90 days Active Vitamin D3 1.25 MG ([address] UT) 1 capsule Orally once a week; Duration: 28 days Active Coenzyme Q10 100 MG 1 cap(s) orally once a day; Duration: 30 day(s) 07/09/2019 Active Meclizine HCl 25 MG 1 tab(s) orally 3 times a day Not-Taking Fish Oil 1000 MG 1 cap(s) orally 2 times a day; Duration: 30 day(s) 10/15/2019 Active Immunizations Vaccine Route [...] Problem Status W/U Status Risk Notes Problem Dizziness (133087018) Dizziness (R42) Active co nfirmed Problem Palpitations (15778865) Palpitations (R00.2) Active confirmed Problem Hypothyroidism (09831038) Hypothyroidism (acquired) (E03.9) Active confirmed Problem Vitamin D deficiency (99853523) Vitamin D deficiency (E55.9) Active confirmed Problem Hypertriglyceridemia (118552136) Hypertriglyceridemia (E78.1) Active confirmed Problem Osteopenia (797878376) Osteopenia (M85.80) Active confirmed Problem Hyperthyroidism (21638063) Hyperthyroidism (E05.90) Active confirmed Problem Chronic pain (84207157) Other chronic pain (G89.29) Active confirmed Problem Acute cystitis (23098184) Acute cystitis with hematuria (N30.01) Active confirmed Problem Chronic fatigue syndrome (74514177) Chronic fatigue (R53.82) Active confirmed Problem Thrombocytopenia (214076603) Thrombocytopenia (D69.6) Active confirmed Problem Vitamin B>12< deficiency anaemia (04680853) Other vitamin B12 deficiency anemia (D51.8) Active confirmed Problem Osteoporosis (98769781) Osteoporosis (M81.0) Active confirmed Problem Hyperlipidemia (34896018) Other and unspecified hyperlipidemia (E78.5) Active confirmed Problem Hyperlipidaemia (90888314) Hyperlipidemia, unspecified hyperlipidemia type (E78.5) Active confirmed Problem Allergic rhinitis caused by pollen (06438688) Seasonal allergic rhinitis due to pollen (J30.1) Active confirmed Problem Cardiac dysrhythmia (303550543) Cardiac dysrhythmia, unspecified (I49.9) Active confirmed Problem Iron deficiency anemia secondary to inadequate dietary iron intake (722290977) Iron deficiency anemia secondary to inadequate dietary iron intake (D50.8) Active confirmed Problem Osteopenia (180482393) Osteopenia of multiple sites (M85.89) Active confirmed Problem Iron deficiency anemia due to dietary causes (508494308) Iron deficiency anemia due to dietary causes (D50.8) Active confirmed Problem Primary hypertension (94402368) Primary hypertension (I10) Active confirmed Problem Chronic dysfunct ion of left eustachian tube (H69.82) Active confirmed Vital Signs Heart Rate 59 /min 08/20/2025 Blood pressure diastolic 72 mm Hg 08/20/2025 Height 62.25 in 08/20/2025 Blood pressure systolic 120 mm Hg 08/20/2025 Weight 111.2 lbs 08/20/2025 BMI 20.17 kg/m2 08/20/2025 Encounters Encounter Location Date Provider Diagnosis [facility] [address] [facility] [address] [place], [place] [id number] 11/03/2024 Anahy Juarez Hypothyroidism (acquired) E03.9 ; Osteoporosis M81.0 ; Iron deficiency anemia secondary to inadequate dietary iron intake D50.8 and Hyperlipidemia, unspecified hyperlipidemia type E78.5 [facility] [address] [facility] [address] [place] [id number] 12/10/2024 Nuvia Hollingsworth Dysuria R30.0 and BM I 20.0-20.9, adult Z68.20 [facility] [address] [place] [id number] 02/23/2025 Anahy Juarez Primary hypertension I10 ; Hypothyroidism (acquired) E03.9 ; Chest discomfort R07.89 and BMI 20.0-20.9, adult Z68.20 [facility] [address] [place] [id number] 07/20/2025 Anahy Juarez Palpitations R00.2 ; Osteoporosis M81.0 ; Other vitamin B12 deficiency anemia D51.8 ; Iron deficiency anemia secondary to inadequate dietary iron intake D50.8 ; Hypothyroidism (acquired) E03.9 and Hyperlipidemia, unspecified hyperlipidemia type E78.5 [facility] [place] [id number] 08/20/2025 Anahy Juarez Dysuria R30.0 and Uterine leiomyoma, unspecified location D25.9 [facility] [address] [place] [address] [place] [id number] 03/19/2025 Anahy Juarez Primary hypertension I10 ; Palpitations R00.2 ; Acute midline thoracic back pain M54.6 and BMI 20.0-20.9, adult Z68.20 [facility] [address] [place] [address] [place] [id number] 03/16/2025 Anahy Juarez Screening for colon cancer Z12.11 [facility] [address] [place] [address] [place] [id number] 04/06/2025 Anahy Juarez Assessments Encounter Date Diagnosis (ICD Code) Assessment Notes Treatment Notes Treatment Clinical Notes Section Notes 11/03/2024 Hypothyroidism (acquired) (ICD-10 - E03.9) 11/03/2024 Osteoporosis (ICD-10 - M81.0) 12/10/2024 Dysuria (ICD-10 - R30.0) Increase water intake, no caffeine, no baths only showers 12/10/2024 BMI 20.0-20.9, adult (ICD-10 - Z68.20) 03/16/2025 Screening for colon cancer (ICD-10 - Z12.11) 03/19/2025 Palpitations (ICD-10 - R00.2) 03/19/2025 Primary hypertension (ICD-10 - I10) 07/20/2025 Palpitations (ICD-10 - R00.2) 08/20/2025 Dysuria (ICD-10 - R30.0) 08/20/2025 Uterine leiomyoma, unspecified location (ICD-10 - D25.9) 02/23/2025 Hypothyroidism (acquired) (ICD-10 - E03.9) 02/23/2025 Primary hypertension (ICD-10 - I10) 07/20/2025 Osteoporosis (ICD-10 - M81.0) 02/23/2025 Chest discomfort (ICD-10 - R07.89) 11/03/2024 Iron deficiency anemia secondary to inadequate dietary iron intake (ICD-10 - D50.8) 03/19/2025 Acute midline thoracic back pain (ICD-10 - M54.6) 11/03/2024 Hyperlipidemia, unspecified hyperlipidemia type (ICD-10 - E78.5) 03/19/2025 BMI 20.0-20.9, adult (ICD-10 - Z68.20) 07/20/2025 Other vitamin B12 deficiency anemia (ICD-10 - D51.8) 02/23/2025 BMI 20.0-20.9, adult (ICD-10 - Z68.20) 07/20/2025 Iron deficiency anemia secondary to inadequate dietary iron intake (ICD-10 - D50.8) 07/20/2025 Hypothyroidism (acquired) (ICD-10 - E03.9) 07/20/2025 Hyperlipidemia, unspecified hyperlipidemia type (ICD-10 - E78.5) Plan Of Treatment Pending Test Test Name Order Date Cardiac enzymes 10/25/2021 ultrasound : Transvaginal 08/20/2025 P-Culture, Urine 08/20/2025 Insurance Providers Payer Name Payer Address Payer Phone Subscriber Number Group Number Insured Name Patient Relationship to Insured Coverage Start Date Coverage End Date [facility] [employer] [address] [place] [address] [id number] [facility] [place] Self - patient is the insured Medications Administered Medication Instructions Date of Administration Dosage Notes B-12 04/19/2022 1 mL Medical (General) History Medical History History ICD Code hyperlipidemia Covid Vaccine J&J - Nov 2020 COVID 19 Bivalent Booster, 2021 Flu shot 2021. COVID 19 Booster, February 2022 COLOGUARD NEG 06/2025 Surgical History Surgery Date(Month/Year) Tubes tied 1996 Hospitalization History Reason Date(Month/Year) Malaria 1982 Childbirth 1992 Childbirth 1985
== END 2025-09-02 23:59 | disposition home or self-care (01) ==
LOC: RAD 13:43
PROVIDERS: PCP Family Medicine; Visit Provider Family Medicine
DX: D25.9 Leiomyoma of uterus, unspecified (principal); N85.4 Malposition of uterus; N94.89 Other specified conditions associated with female genital organs and menstrual cycle; R93.89 Abnormal findings on diagnostic imaging of other specified body structures
CPT/HCPCS: 76830